=== PATIENT | male | born 1945 | race Caucasian/White ===

== ENCOUNTER 2016-12-13 13:41 | Inpatient (IN) ==
[2016-12-13] MEDS ORDERED: DUONEB (A & A) INH ONE (14:03)
[2016-12-13] MEDS ORDERED: SOLU-MEDROL IV ONE (14:04)
--- NOTE | 2016-12-13 14:08 | PROVIDER DOCUMENTATION ---
HPI-Respiratory General - General Chief Complaint: Shortness of Breath Time Seen by Provider: 12/13/16 14:04 Source: patient Allergies/Adverse Reactions: Patient Allergies Allergy/AdvReac Type Severity Reaction Status Date / Time No Known Allergies Allergy Verified 10/18/16 10:37 Home Medications: Home Medication List Medication Instructions Recorded Confirmed Last Taken Type Budesonide/Formoterol Inhaler 2 puff INH RTBID 10/18/16 10/18/16 Unknown History [Symbicort 160/4.5 Microgm Inhaler] Levothyroxine Sodium [Synthroid] 112 mcg PO DAILY 10/18/16 10/18/16 12/13/16 History Nifedipine [Procardia Xl] 90 mg PO DAILY 10/18/16 10/18/16 12/12/16 History Terazosin HCl 10 mg PO DAILY 10/18/16 10/18/16 12/13/16 History Trazodone [Desyrel] 100 mg PO QHS 10/18/16 10/18/16 12/13/16 History Albuterol Sulfate [Proventil Hfa] 6.7 gm 12/13/16 12/13/16 History Budesonide/Formoterol Fumarate 12/13/16 12/13/16 History [Symbicort 160-4.5 Mcg Inhaler] Ipratropium/Albuterol INH 4 gm INH TID 12/13/16 12/13/16 12/13/16 History [Combivent Respimat Inhaler] Tramadol [Ultram] 100 mg PO BID 12/13/16 12/13/16 12/13/16 History - History of Present Illness-Resp Nature of Presenting Problem: pt is a 71 yo M that presents to the ER with cough x 3 to 4 days in which he became short of breath at store a few days ago as well. History of COPD. denies chest pain or fever/chills Severity in ED: reports: moderate Onset/Duration: reports: gradual, 3 days ago, 4 days ago Timing: reports: still present, constant Context: denies: recent URI, out of meds Cough Quality/Degree: reports: moderate, productive cough Episode Frequency: frequent episodes Current Respiratory Medication Therapy: Initiated see nurses note Modifying Factors: worse with: exertion, coughing Associated Symptoms: reports: cough, shortness of breath, short of breath. denies: chest pain/soreness, fever/chills, flu-like symptoms, nasal congestion, nasal drainage Recently seen or treated by another doctor?: No Review of Systems - Adult - REVIEW OF SYSTEMS - ADULT Constitutional: denies: chills, fever Eyes: reports: no symptoms reported Ears, Nose, Mouth & Throat: reports: no symptoms reported Cardiovascular: denies: chest pain, palpitations Respiratory: reports: cough, dyspnea on exertion, shortness of breath. denies: wheezing Gastrointestinal: reports: no symptoms reported Genitourinary: reports: no symptoms reported Musculoskeletal: reports: no symptoms reported Integumentary: reports: no symptoms reported Neurological: reports: no symptoms reported Psychiatric: reports: no symptoms reported Endocrine: reports: no symptoms reported Hematologic/Lymphatic: reports: no symptoms reported Allergic/Immunologic: reports: no symptoms reported All Other Systems: Reviewed and Negative Past History - Adult - PAST MEDICAL HISTORY-ADULT Review of Records: reports: Old Records Reviewed, Nursing Assessment Review, Medications Reviewed Cardiovascular: reports: HTN Respiratory: reports: COPD Endocrine/Immune: reports: thyroid disorder (hypo) - PRIOR SURGERIES/PROCEDURES Surgical/Procedure History: reports: hernia repair - IMMUNIZATION STATUS Childhood Immunizations: See Nurse Assessment Flu Vaccine: See Nurse Assessment - FAMILY HISTORY Family History: reviewed, not pertinent - SOCIAL HISTORY Smoking: quit greater than 1 year, cigarettes Living Situation: family Physical Exam-General - PHYSICAL EXAM-ADULT Initial Vital Signs Reviewed: Yes - CONSTITUTIONAL General Appearance: alert, mild distress - EYES Eyes: PERRL/EOMI, pink conjunctivae - HEAD, EARS, NOSE, MOUTH & THROAT HENMT: moist mucous membranes, normal ENT inspection - NECK Neck: full range of motion, normal inspection - RESPIRATORY Respiratory: no respiratory distress, no accessory muscle use, decreased breath sounds - CARDIOVASCULAR Cardiovascular: no JVD, no murmur, tachycardia - GASTROINTESTINAL (ABDOMEN) Abdominal Exam: normal bowel sounds, non tender, soft - MUSCULOSKELETAL Extremity: normal range of motion, normal inspection, no pedal edema - SKIN Integumentary: normal color, warm/dry - NEUROLOGIC Neurologic: no motor/sensory deficits - PSYCHIATRIC Psych/Mental Status: normal mood/affect, normal thought content, normal thought process, oriented x 3 Progress - PLAN OF CARE/RESULTS Progress/Plan/Lab Results: Vital Signs - 8 hr 12/13/16 13:42 12/13/16 14:14 Temperature 96.7 F L Pulse Rate 114 H 105 H Respiratory Rate 22 18 Blood Pressure 120/84 O2 Sat by Pulse Oximetry 92 L 93 L Laboratory Results - last 24 hr 12/13/16 12/13/16 14:18 14:39 WBC 8.49 RBC 4.42 L Hgb 13.2 L Hct 38.6 L MCV 87.3 MCH 29.9 MCHC 34.2 RDW Std Deviation 13.0 Plt Count 274 MPV 10.2 Immature Gran % (Auto) 0.1 Neut % (Auto) 70.9 Lymph % (Auto) 22.1 [place] % (Auto) 6.5 Eos % (Auto) 0.2 Baso % (Auto) 0.2 Immature Gran # (Auto) 0.01 Neut # (Auto) 6.01 Lymph # (Auto) 1.88 [place] # (Auto) 0.55 Eos # (Auto) 0.02 Baso # (Auto) 0.02 Specimen Type ARTERIAL Sample Site R RADIAL pH 7.49 H pCO2 34 L pO2 60 HCO3 27.0 H Base Excess 2.9 Oxyhemoglobin 91.1 L ABG O2 Sat (Calculated) 17.4 ABG O2 Saturation 94.8 L ABG Carboxyhemoglobin 2.40 ABG Methemoglobin 1.6 H Beto Test YES A-a O2 Difference 97.0 Total Hemoglobin 13.6 Lactate 1.40 Liter Flow 2.0 Blood Gas Modality CANNULA FiO2 % 28.0 Orders Category Date Time Status Saline Loc NOW Care 12/13/16 14:03 Active CHEST-2 VIEWS [RAD] Stat Exams 12/13/16 14:03 Draft ABG [RESP] Routine Lab 12/13/16 14:18 Completed BLOOD CULTURE [BLDCUL] Stat Lab 12/13/16 15:12 Ordered CBC WITH DIFF [HEME] Stat Lab 12/13/16 14:39 Completed CK PROFILE [SP CHEM] Stat Lab 12/13/16 14:39 Received COMPREHENSIVE METABOLIC PANEL [CHEM] Stat Lab 12/13/16 14:39 Received PRO B-NATRIURETIC PEPTIDE Stat Lab 12/13/16 14:39 Received TROPONIN T Stat Lab 12/13/16 14:39 Received Albuterol 2.5MG/Ipratrop 0.5MG [Duoneb (A & A)] Med 12/13/16 14:03 Discontinued 6 ml INH NOW ONE Levofloxacin 750 mg/D5w [Levaquin 750 mg/D5w] Med 12/13/16 15:12 Active 750 mg in 150 ml IV NOW Methylprednisolone Sod Succ [Solu-Medrol] Med 12/13/16 14:04 Discontinued 125 mg IV NOW ONE Aerosol Treatments Routine Oth 12/13/16 14:04 Completed Aerosol Treatments Stat Oth 12/13/16 14:04 Completed EKG [EKG] Stat Ther 12/13/16 14:11 Draft Result Diagrams: 12/13/16 14:39 - EKG 1 Time of EKG reading by physician:: 14:12 EKG Read and Signed by:: Leroy Islas EKG Interpretation (*Must complete 3 of following elements*): Abnormal Rate: 105 Rhythm: Sinus Tachycardia [place]: right QRS: normal TN Interval: normal ST Wave: normal - XRAY 1 XRAY Study: Chest Impression: Abnormal XRAY Interpretation: B alveolor consolidation R>L juan for pneumonia, emphysema - CONSULTS/PCP/HOSPITALIST Notification #1 *Consult/PCP/Hospitalist*: Time Discussed: 15:15 Consult Disposition: Admit Departure - Departure Time of Disposition Decision: 15:18 DIAGNOSIS: COPD exacerbation Bilateral pneumonia Qualifiers: Pneumonia type: due to unspecified organism Lung location: unspecified part of lung Qualified Code(s): J18.9 - Pneumonia, unspecified organism Disposition: ADMITTED INPATIENT 09 Certified Medical Emergency: Emergent Condition: Stable Referrals and Follow-Ups: None,PCP [Primary Care Provider] -
--- NOTE | 2016-12-13 14:24 | EKG Report ---
Test Performed on : 12/13/2016 2:12:22 PM Test Reason : pain Blood Pressure : / mmHG Vent. Rate : 105 BPM Atrial Rate : 105 BPM P-R Int : 160 ms QRS Dur : 078 ms QT Int : 340 ms P-R-T Axes : 076 093 075 degrees QTc Int : 449 ms Sinus tachycardia. Rightward axis Possible Anterior infarct , age undetermined Abnormal ECG No previous ECGs available Unconfirmed Result
[2016-12-13 14:34] LABS: BE 2.9 mmoll (-3.0-3.0); BLOOD TYPE ARTERIAL; DRAW SITE R RADIAL; METHB 1.6 % (0.0-1.5); O2(CT) 17.4 mL/dL (15.0-23.0); PCO2(98.6) 34 mmHg (35-45); PO2(98.6) 60 mmHg (60-100); SAMPLE BLOOD; SAO2 94.8 % (95.0-100.0); THB 13.6 g/dL (11.5-17.4); pH(98.6) 7.49 (7.35-7.45)
[2016-12-13 14:40] LABS: ALLEN TEST YES; MODALITY CANNULA
[2016-12-13 14:49] LABS: MANUAL DIFF NEEDED? NO
[2016-12-13 14:58] LABS: BASO% 0.2 % (0.0-0.8); EOS# 0.02 X1000 (0.0-0.7); EOS% 0.2 % (0.0-10.0); HEMATOCRIT 38.6 % (42.0-52.0); HEMOGLOBIN 13.2 g/dL (14.0-18.0); IMM GRAN# 0.01 X1000 (0.0-0.04); IMM GRAN% 0.1 % (0.0-0.5); LYMPH# 1.88 X1000 (1.2-3.4); LYMPH% 22.1 % (20.5-51.1); MCH 29.9 PG (27-31); MCHC 34.2 g/dL (33-37); MCV 87.3 FL (81-99); MONO# 0.55 X1000 (0.11-0.59); MONO% 6.5 % (1.7-9.3); MPV 10.2 FL (7.4-10.4); NEUT% 70.9 % (42.2-75.2); PLT 274 X1000 (130-400); RBC 4.42 XMIL (4.7-6.1)
--- NOTE | 2016-12-13 15:06 | Diag Imaging Result Document ---
PROCEDURE NAME: CHEST-2 VIEWS - 12/13/2016 CHEST, 2 VIEWS: INDICATION: Cough. FINDINGS: There is pulmonary emphysema. There is a large area of alveolar consolidation, right lower lobe but also right upper and right middle lobe. There is a right pleural effusion. There is a smaller area of airspace consolidation in left lower lobe. The heart size is within normal limits. IMPRESSION: Bilateral infiltrates, right greater than left, suspicious for pneumonia. Emphysema.
[2016-12-13] MEDS ORDERED: LEVAQUIN 750 MG/D5W 750 MG/150 ML IVPB IV ONE (15:12)
[2016-12-13] MEDS ORDERED: ZITHROMAX PO ONE (15:20)
[2016-12-13 15:27] LABS: AGAP 17; ALBUMIN 4.2 g/dL (3.5-5.0); ALKALINE PHOSPHATASE 109 U/L (32-122); BUN 19 mg/dL (8-22); CALCIUM 9.3 mg/dL (8.8-10.2); CHLORIDE 98 mmol/L (98-107); CK PROFILE 100 U/L (24-204); COSMO 279; GOT 20 U/L (10-34); GPT 11 U/L (10-44); POTASSIUM 3.2 mmol/L (3.5-5.1); SODIUM 137 mmol/L (136-145); TCO2 22 mmol/L (25-35); TOTAL PROTEIN 6.9 g/dL (6.3-8.3)
[2016-12-13] MEDS ORDERED: DUONEB (A & A) INH PRN (17:16)
[2016-12-13] MEDS ORDERED: ZOFRAN IV PRN (17:16)
[2016-12-13] MEDS ORDERED: TYLENOL PO PRN (17:16)
--- NOTE | 2016-12-13 17:37 | HISTORY AND PHYSICAL ---
PRIMARY CARE PHYSICIAN: At the [facility] CHIEF COMPLAINT: Shortness of breath and cough for 3 days. HISTORY OF PRESENT ILLNESS: This is a 71-year-old male with a history of COPD, hypertension, and hypothyroid. He presented to the emergency room complaining of 3 days of increasing cough and shortness of breath. This has progressed. It started out as dyspnea on exertion, it has progressed to shortness of breath at rest. He denies any chest pain, palpitations, fever or chills. He was found to have bilateral pneumonia, having right upper and lower lobe pneumonia as well as left lower, with a white count of 8.9, and he is afebrile. He was given DuoNeb treatment with Zithromax and Levaquin as well as Solu-Medrol. He is being admitted for further evaluation and treatment. PAST MEDICAL HISTORY: COPD, hypertension, hypothyroid. PAST SURGICAL HISTORY: Hernia repair. SOCIAL HISTORY: He denies alcohol, tobacco, or illicit drug use. He does state that he stopped smoking cigarettes about a year ago. ALLERGIES: No known drug allergies. HOME MEDICATIONS: A list will be obtained. REVIEW OF SYSTEMS: A 14 point review of systems is discussed with patient with pertinent positives stated in HPI. He denied chest pain, palpitations, syncope, dizziness, PND, orthopnea, hemoptysis, nausea, vomiting, diarrhea, constipation, black or bloody vomitus, black or bloody stools, hematuria, dysuria, frequency, or urgency. PHYSICAL EXAMINATION: GENERAL: This is a 71-year-old male, who is sitting up in the bed, in no distress. VITAL SIGNS: Blood pressure is 131/86, with a heart rate of 101, respirations are 16, temperature is 96.9 degrees oral with oxygen saturations of 92%-95% on 2 L nasal cannula. HEENT: Head is normocephalic, atraumatic. Pupils equal, round, react to light. EOMs are intact. Sclerae anicteric. Mucous membranes are dry. NECK: Supple with trachea midline. CARDIOVASCULAR: Regular rate and rhythm. S1, S2 appreciated. PULMONARY: Breath sounds have scattered wheezes, decreased in the bases with right greater than left. No increased work of breathing noted. GASTROINTESTINAL: Abdomen is soft, nontender, nondistended. Bowel sounds in all 4 quadrants. BACK: No CVAT. No spine tenderness. MUSCULOSKELETAL: Good range of motion of joints. NEUROLOGIC: He is alert and oriented x3. EXTREMITIES: No clubbing, cyanosis. He does have 1+ pretibial and pedal edema bilateral lower extremities with pulses palpable x4. Calves nontender. SKIN: Warm and dry. DIAGNOSTIC DATA: WBC is 8.4, with hemoglobin 13.2, hematocrit 38.6, and platelets of 274,000. Sodium is 137, potassium 3.2, BUN 19, creatinine 0.8, with a glucose of 143. Troponin is less than 0.010. Arterial blood gases, pH of 7.49, with pCO2 34, PO2 60, and bicarbonate of 27, this is on 2 L nasal cannula. Chest x-ray reveals right upper and lower lobe pneumonia with left lower lobe. ASSESSMENT AND PLAN: 1. Multilobar pneumonia. Blood cultures are obtained in the emergency room. He was given Levaquin and Zithromax. We will continue this. 2. Chronic obstructive pulmonary disease. We will continue with supplemental oxygen, breathing treatments q.4 hours and q.2 hours p.r.n. Steroids to taper. We will identify his home medications and continue as appropriate. 3. Hypothyroid. We will check a TSH. 4. For deep venous thrombosis prophylaxis we will use Lovenox. 5. For gastrointestinal prophylaxis we will use Prilosec. 6. Further treatments pending hospital course. Dictated by JIN Gomez for Agapito Urrutia MD cc: JIN Gomez MD
[2016-12-13] MEDS: DUONEB (A & A) INH SCH ×2 (20:00→22:48)
[2016-12-13] MEDS: ULTRAM PO SCH (21:22)
[2016-12-13] MEDS: DESYREL PO SCH (21:23)
[2016-12-13] MEDS: SOLU-MEDROL IV SCH (21:24)
[2016-12-14] MEDS: DUONEB (A & A) INH SCH ×6 (03:11→22:53)
[2016-12-14 06:37] LABS: HEMATOCRIT 35.7 % (42.0-52.0); HEMOGLOBIN 11.9 g/dL (14.0-18.0); MCH 29.5 PG (27-31); MCHC 33.3 g/dL (33-37); MCV 88.6 FL (81-99); MPV 10.7 FL (7.4-10.4); RBC 4.03 XMIL (4.7-6.1)
[2016-12-14] MEDS: SYNTHROID PO SCH (06:37)
[2016-12-14] MEDS: PRILOSEC PO SCH (06:37)
[2016-12-14] MEDS: SOLU-MEDROL IV SCH ×2 (06:38→17:44)
[2016-12-14 06:57] LABS: AGAP 10; ALBUMIN 3.8 g/dL (3.5-5.0); ALKALINE PHOSPHATASE 90 U/L (32-122); BUN 17 mg/dL (8-22); CALCIUM 9.2 mg/dL (8.8-10.2); CHLORIDE 103 mmol/L (98-107); COSMO 278; GOT 17 U/L (10-34); GPT 9 U/L (10-44); SODIUM 137 mmol/L (136-145); TCO2 24 mmol/L (25-35); TOTAL PROTEIN 6.1 g/dL (6.3-8.3)
[2016-12-14] MEDS ORDERED: COMBIVENT RESPIMAT INHALER INH SCH (07:00)
[2016-12-14] MEDS: LOVENOX SUBQ SCH (08:38)
[2016-12-14] MEDS: HYTRIN PO SCH (08:38)
[2016-12-14] MEDS: ADALAT CC PO SCH (08:38)
[2016-12-14] MEDS: ULTRAM PO SCH ×3 (08:39→21:43)
[2016-12-14] MEDS: ZITHROMAX PO SCH (08:53)
--- NOTE | 2016-12-14 12:58 | PROGRESS NOTE ---
DATE: 12/14/2016 SUBJECTIVE: The patient notes that he is feeling a lot better this morning. He is having less cough and congestion, less shortness of breath, less dyspnea on exertion. Denies any chest pain, palpitation, denies any fevers or chills. OBJECTIVE: Vital signs: Reviewed. Temp 98, pulse 73, respiratory 20, BP 162/83 to 157/84, satting 95% on 2 L. General: The patient is well developed, well nourished. He is currently in mild respiratory distress. He is awake and alert. Neck: Supple. CV: Regular rate. Chest: Relatively clear. Abdomen: Soft, nondistended. Extremities: He moves all extremities. Neurological: No changes. ASSESSMENT: 1. Chronic obstructive pulmonary disease with mild exacerbation, improving. 2. Multilobar pneumonia. Continue Levaquin, improving. 3. Hypothyroidism. 4. Hypokalemia, resolved. 5. Hyperglycemia secondary to steroids, stable. PLAN: Will decrease his Levaquin to p.o. Will decrease his Solu-Medrol to 40 q.12 h. Continue other orders. Will recheck a chest x-ray in the a.m. Hopefully home in one to two days. cc: Agapito Urrutia MD
[2016-12-14] MEDS ORDERED: LEVAQUIN 750 MG/D5W 750 MG/150 ML IVPB IV SCH (16:00)
[2016-12-14] MEDS ORDERED: NS 500 ML ONE (16:17)
[2016-12-14] MEDS: DESYREL PO SCH ×2 (19:56→21:43)
[2016-12-15] MEDS: DUONEB (A & A) INH SCH ×3 (03:35→10:52)
[2016-12-15] MEDS: SOLU-MEDROL IV SCH (05:06)
[2016-12-15 06:30] LABS: HEMATOCRIT 35.9 % (42.0-52.0); HEMOGLOBIN 11.8 g/dL (14.0-18.0); MCH 29.6 PG (27-31); MCHC 32.9 g/dL (33-37); MPV 10.8 FL (7.4-10.4); RBC 3.99 XMIL (4.7-6.1)
[2016-12-15] MEDS: SYNTHROID PO SCH (06:38)
[2016-12-15] MEDS: PRILOSEC PO SCH (06:38)
[2016-12-15 06:51] LABS: AGAP 10; ALBUMIN 3.5 g/dL (3.5-5.0); ALKALINE PHOSPHATASE 90 U/L (32-122); BUN 23 mg/dL (8-22); CHLORIDE 105 mmol/L (98-107); COSMO 283; GOT 20 U/L (10-34); GPT 11 U/L (10-44); POTASSIUM 3.8 mmol/L (3.5-5.1); SODIUM 139 mmol/L (136-145); TCO2 25 mmol/L (25-35); TOTAL BILIRUBIN < 0.15 mg/dL (0.20-1.00); TOTAL PROTEIN 5.9 g/dL (6.3-8.3)
[2016-12-15] MEDS: HYTRIN PO SCH (08:25)
[2016-12-15] MEDS: ADALAT CC PO SCH (08:26)
[2016-12-15] MEDS: ULTRAM PO SCH (08:26)
[2016-12-15] MEDS: LOVENOX SUBQ SCH (08:26)
[2016-12-15] MEDS: ZITHROMAX PO SCH (10:13)
--- NOTE | 2016-12-15 10:15 | Diag Imaging Result Document ---
PROCEDURE NAME: CHEST-2 VIEWS - 12/15/2016 CHEST X-RAY 2 VIEWS, 12/15/2016: COMPARISON: 12/13/2016. FINDINGS: There is decrease in density of the ill-defined infiltrate at the right lung base worse in the right lower lobe. No new infiltrates. Stable severe COPD. Heart size is normal. IMPRESSION: Improvement in the right lower lobe infiltrate/pneumonia.
[2016-12-15 12:12] VITALS: BP 141/71
--- NOTE | 2016-12-15 21:34 | DISCHARGE SUMMARY ---
ADMISSION DATE: 12/13/2016 DISCHARGE DATE: 12/15/2016 DISCHARGE DIAGNOSES: 1. Right lower lobe pneumonia improved. 2. Chronic obstructive pulmonary disease with exacerbation, stable. 3. Hypothyroidism. 4. Hypertension, stable. CONSULTATIONS: None. PROCEDURE: None. HOSPITAL COURSE: Patient is a 71-year-old male was admitted as on the HPI. Treated in usual fashion. Placed on breathing treatments, azithromycin and Levaquin, both have been changed to p.o. Patient is doing very well. His methylprednisolone has been slowly decreased over the last several days. On discharge he is awake, alert. He is in no distress. DISPOSITION: The patient will be discharged home. He will take a Medrol Dosepak. Continue Levaquin 500 and azithromycin 250 for the next 5 days each. He will continue breathing treatments. Will follow up outpatient with his primary care physician of choice. TIME SPENT: 30 minutes spent in discharge planning and instructions. cc: Agapito Urrutia MD
== END 2016-12-15 14:04 | disposition home or self-care (01) ==
LOC: P.ED 13:41 → P.MEDSURG 16:23
PROVIDERS: ATTEND Family Medicine

== ENCOUNTER 2016-12-19 19:33 | Inpatient (IN) ==
[2016-12-19 21:18] LABS: MANUAL DIFF NEEDED? NO
[2016-12-19 21:42] LABS: INR 1.06 (0.86-1.15); PROTIME 14.1 Seconds (12.1-15.5); PTT PL 27.4 Seconds (22.6-43.9)
--- NOTE | 2016-12-19 21:55 | EKG Report ---
Test Performed on : 12/19/2016 8:52:29 PM Test Reason : CHEST PAIN Blood Pressure : / mmHG Vent. Rate : 103 BPM Atrial Rate : 103 BPM P-R Int : 174 ms QRS Dur : 078 ms QT Int : 350 ms P-R-T Axes : 072 090 074 degrees QTc Int : 458 ms Sinus tachycardia. Rightward axis Borderline ECG When compared with ECG of 13-DEC-2016 14:12, No significant change was found Unconfirmed Result
[2016-12-19 22:02] LABS: BASO% 0.1 % (0.0-0.8); EOS# 0.02 X1000 (0.0-0.7); EOS% 0.3 % (0.0-10.0); HEMATOCRIT 38.3 % (42.0-52.0); HEMOGLOBIN 12.6 g/dL (14.0-18.0); IMM GRAN# 0.03 X1000 (0.0-0.04); IMM GRAN% 0.4 % (0.0-0.5); LYMPH# 1.04 X1000 (1.2-3.4); LYMPH% 14.5 % (20.5-51.1); MCH 29.1 PG (27-31); MCHC 32.9 g/dL (33-37); MCV 88.5 FL (81-99); MONO# 0.67 X1000 (0.11-0.59); MONO% 9.3 % (1.7-9.3); MPV 10.4 FL (7.4-10.4); NEUT% 75.4 % (42.2-75.2); PLT 197 X1000 (130-400); RBC 4.33 XMIL (4.7-6.1)
[2016-12-19 22:08] LABS: BE 2.7 mmoll (-3.0-3.0); BLOOD TYPE ARTERIAL; DRAW SITE L RADIAL; METHB 1.4 % (0.0-1.5); O2(CT) 17.9 mL/dL (15.0-23.0); PCO2(98.6) 36 mmHg (35-45); PO2(98.6) 63 mmHg (60-100); SAMPLE BLOOD; SAO2 95.8 % (95.0-100.0); THB 13.8 g/dL (11.5-17.4); pH(98.6) 7.47 (7.35-7.45)
[2016-12-19 22:12] LABS: ALLEN TEST YES; MODALITY ROOM AIR
[2016-12-19] MEDS ORDERED: DUONEB (A & A) INH ONE (22:17)
[2016-12-19 22:18] LABS: AGAP 14; ALKALINE PHOSPHATASE 94 U/L (32-122); BUN 22 mg/dL (8-22); CALCIUM 9.1 mg/dL (8.8-10.2); CHLORIDE 99 mmol/L (98-107); CK PROFILE 94 U/L (24-204); COSMO 278; GOT 28 U/L (10-34); GPT 25 U/L (10-44); MAGNESIUM 2.3 mg/dL (1.5-2.7); POTASSIUM 3.2 mmol/L (3.5-5.1); SODIUM 137 mmol/L (136-145); TCO2 24 mmol/L (25-35); TOTAL PROTEIN 6.4 g/dL (6.3-8.3)
[2016-12-20] MEDS ORDERED: NS 1,000 ML IV ONE (01:25)
[2016-12-20] MEDS ORDERED: ROCEPHIN 1 GM/NS 1 GM/50 ML IVPB IV SCH (01:30)
--- NOTE | 2016-12-20 02:41 | Diag Imaging Result Document ---
PROCEDURE NAME: ANGIOGRAM/PULMONARY ARTERIES - 12/19/2016 STUDY: CT chest with intravenous contrast. Normal opacification of the pulmonary arteries and their major branches. No filling defects identified. Trace right fluid. Very dense infiltrates throughout the right lower lobe with smaller patchy infiltrates in the other lobes, most pronounced posteriorly in the left lower lobe. There are prominent emphysematous changes. The heart is not enlarged. No enlarged mediastinal or hilar lymph nodes. IMPRESSION: 1. No pulmonary emboli. 2. Pneumonia most pronounced in the right lower lobe. 3. Emphysema. A preliminary report was given at 1:04 a.m.
[2016-12-20] MEDS ORDERED: DUONEB (A & A) INH PRN (04:02)
[2016-12-20] MEDS ORDERED: HYTRIN PO ONE (05:30)
--- NOTE | 2016-12-20 06:44 | Diag Imaging Result Document ---
PROCEDURE NAME: CHEST-2 VIEWS - 12/19/2016 FRONTAL AND LATERAL CHEST, TWO VIEWS: COMPARISON: 12/15/2016. FINDINGS: Interval worsening of dense infiltrates in the right lower lobe. The lungs are hyperexpanded. The pulmonary vessels are small. The heart is not enlarged. There is a small right effusion. IMPRESSION: 1. Interval worsening in the right lower lobe pneumonia. 2. Emphysema.
[2016-12-20] MEDS ORDERED: APRESOLINE IV PRN (07:18)
[2016-12-20] MEDS ORDERED: ZITHROMAX 500 MG/NS 500 MG/250 ML IVPB IV SCH (07:30)
[2016-12-20] MEDS ORDERED: ULTRAM PO PRN (08:21)
[2016-12-20] MEDS ORDERED: KLOR-CON PO ONE (08:23)
[2016-12-20] MEDS ORDERED: VANCOMYCIN IV PER PHARMACY MISC SCH (08:45)
[2016-12-20] MEDS: DUONEB (A & A) INH SCH ×5 (08:50→22:58)
[2016-12-20] MEDS: SYMBICORT 160/4.5 MICROGM INHALER INH SCH ×2 (09:01→19:40)
[2016-12-20] MEDS ORDERED: DULCOLAX PR ONE (09:15)
[2016-12-20] MEDS: LOVENOX SUBQ SCH (09:56)
[2016-12-20] MEDS: SOLU-MEDROL IV SCH ×2 (09:56→16:46)
[2016-12-20] MEDS: ZOSYN 3.375 GM/NS 3.375 GM/50 ML IVPB IV SCH ×3 (09:56→20:33)
[2016-12-20] MEDS ORDERED: VANCOMYCIN 1,900 MG in NS 500 ML IV ONE (10:00)
[2016-12-20] MEDS: XANAX PO SCH ×2 (10:12→20:34)
--- NOTE | 2016-12-20 10:37 | HISTORY AND PHYSICAL ---
CHIEF COMPLAINT: Increased shortness of breath since being discharged from the hospital on 12/15/2016. HISTORY OF PRESENTING ILLNESS: This is a 71-year-old male, who was admitted to [facility] on 12/13/2016 through 12/15/2016 for a right lower lobe pneumonia. She was discharged home on p.o. Levaquin and Zithromax, states he took his medications as prescribed, but that he has continued since he went home on the to have worsening shortness of breath that progressively worsened every day. So, he came to the emergency room last night. A chest x-ray showed interval worsening in the right lower lobe pneumonia. He had a mild elevation in his D-dimer at 0.57. Pulmonary arteriogram was obtained that showed no pulmonary emboli. The pneumonia was most pronounced in the right lower lobe and emphysema. So, he is admitted for further evaluation and treatment. PAST MEDICAL HISTORY: Recent right lower lobe pneumonia, COPD, hypertension, hypothyroidism. PAST SURGICAL HISTORY: A hernia repair. FAMILY HISTORY: Noncontributory. SOCIAL HISTORY: He denies any tobacco, alcohol, or illicit drug use. Does state that he was a former smoker, but has quit greater than a year ago. ALLERGIES: He has no known drug allergies. HOME MEDICATIONS: We will hold the followin. Proventil inhalation q. 4 hours p.r.n. 2. Zithromax 250 mg p.o. daily. 3. Combivent inhalation 4 times daily. 4. Levaquin 500 mg p.o. daily. 5. Medrol Dosepak as directed. We will continue his: 1. Symbicort 160 mg/4.5 two puffs inhalation b.i.d. 2. Synthroid 112 mcg p.o. daily. 3. Nifedipine 60 mg p.o. at bedtime. 4. Terazosin 10 mg p.o. at bedtime. 5. Ultram 100 mg p.o. q. 6 hours. 6. Desyrel 50 mg p.o. at bedtime. LABORATORY DATA/IMAGING DATA: Showed a white blood cell count of 7.19, hemoglobin 12.6, hematocrit 38.3, platelets 197. PT and INR of 14.1 and 1.06 with a D-dimer of 0.57. His ABG showed a pH of 7.47, pCO2 of 36, PO2 63, bicarbonate of 26.9. Sodium 137, potassium 3.2, chloride 99, CO2 24, BUN of 22, creatinine 0.9, glucose 112, magnesium of 2.3, creatine kinase of 94. Troponin less than 0.010. ProBNP of 63. Chest x-ray showed interval worsening in the right lower lobe pneumonia and emphysema. Pulmonary arteriogram showed no pulmonary emboli. Pneumonia most pronounced in the right lower lobe and emphysema. EKG showed sinus tachycardia at 103. REVIEW OF SYSTEMS: He denied any fever, chills, blurred vision, dizziness, chest pain. He had a mild cough nonproductive, shortness of breath. Denied any nausea or vomiting. States he has had some abdominal pain. No diarrhea or burning or hurting with urination. PHYSICAL EXAMINATION: VITAL SIGNS: On arrival, he had a temperature of 97.8 degrees, pulse 118, respirations 20, blood pressure 133/97, satting 95% on room air. GENERAL: This is a 71-year-old male, who is sitting up in the bed resting quietly. HEENT: Normocephalic and atraumatic. Pupils are equal, round, reactive to light. The extraocular movements are intact. The oropharynx and nares are clear. NECK: Supple. LUNGS: Clear to auscultation bilaterally with decreased breath sounds throughout entire posterior lung [place]. Equal lung expansion and chest wall movement are noted. HEART: With regular rate and rhythm. No murmurs, rubs, or gallops. ABDOMEN: Soft, nontender, nondistended. Bowel sounds are present x4 quadrants. EXTREMITIES: There is no clubbing, cyanosis, or edema. NEUROLOGICAL: The cranial nerves 2-12 are grossly intact. ASSESSMENT: 1. Right lower lobe pneumonia with failed outpatient treatment. 2. Hypokalemia. 3. Hypertension. 4. An acute chronic obstructive pulmonary disease exacerbation. PLAN: He was admitted to the medical unit at [facility], placed on telemetry O2 per protocol. He was given Levaquin and Zithromax IV in the ER, but that is what he was on previously and discharged home with p.o. So, we will discontinue that and place him on Zosyn 3.375 g IV q. 6 hours and vancomycin per pharmacy protocol. We will place him on DuoNebs q. 4 hours, normal saline at 80 mL an hour. Continue his home medications as previously identified. We will give him a 40 mEq potassium p.o. x1 now, Solu-Medrol 80 mg IV q. 8 hours, and Lovenox 40 mg subcutaneous q. 24 hours. We will recheck a CBC and a BMP in the a.m. Dictated by JIN Valdez for Julian Lynn MD cc: JIN Valdez MD
[2016-12-20] MEDS: APRESOLINE PO SCH ×2 (13:11→20:33)
[2016-12-20] MEDS: ADALAT CC PO SCH (20:33)
[2016-12-20] MEDS: HYTRIN PO SCH (20:33)
[2016-12-20] MEDS: DESYREL PO SCH (20:33)
[2016-12-21] MEDS: SOLU-MEDROL IV SCH ×3 (01:05→18:15)
[2016-12-21] MEDS: ZOSYN 3.375 GM/NS 3.375 GM/50 ML IVPB IV SCH ×4 (03:45→21:06)
[2016-12-21] MEDS: DUONEB (A & A) INH SCH ×6 (04:01→23:37)
[2016-12-21] MEDS: APRESOLINE PO SCH ×3 (05:27→21:08)
[2016-12-21 05:44] LABS: MANUAL DIFF NEEDED? NO
[2016-12-21 05:56] LABS: HEMATOCRIT 37.9 % (42.0-52.0); HEMOGLOBIN 12.8 g/dL (14.0-18.0); IMM GRAN# 0.01 X1000 (0.0-0.04); IMM GRAN% 0.2 % (0.0-0.5); LYMPH# 0.57 X1000 (1.2-3.4); LYMPH% 12.5 % (20.5-51.1); MCH 29.8 PG (27-31); MCHC 33.8 g/dL (33-37); MCV 88.1 FL (81-99); MONO# 0.16 X1000 (0.11-0.59); MONO% 3.5 % (1.7-9.3); MPV 10.8 FL (7.4-10.4); NEUT% 83.8 % (42.2-75.2); PLT 197 X1000 (130-400)
[2016-12-21 06:12] LABS: AGAP 12; BUN 19 mg/dL (8-22); CALCIUM 9.1 mg/dL (8.8-10.2); CHLORIDE 103 mmol/L (98-107); COSMO 280; POTASSIUM 3.6 mmol/L (3.5-5.1); SODIUM 138 mmol/L (136-145); TCO2 23 mmol/L (25-35)
[2016-12-21] MEDS: SYNTHROID PO SCH (06:34)
[2016-12-21] MEDS: SYMBICORT 160/4.5 MICROGM INHALER INH SCH ×3 (08:00→20:16)
[2016-12-21] MEDS: MIRALAX PO SCH (09:27)
[2016-12-21] MEDS: LOVENOX SUBQ SCH (09:28)
[2016-12-21] MEDS: XANAX PO SCH ×2 (09:30→21:07)
[2016-12-21] MEDS ORDERED: DULCOLAX PR ONE (09:45)
[2016-12-21] MEDS: VANCOMYCIN 1,750 MG in NS 250 ML IV SCH (10:12)
--- NOTE | 2016-12-21 12:36 | PROGRESS NOTE ---
DATE: 12/21/2016 SUBJECTIVE: This patient says that he is feeling better. He is not complaining of shortness of breath right now. This patient was anxious also yesterday and today he looks much better. OBJECTIVE: Vital Signs: Pulse 106. Respiratory rate 18, blood pressure 146/79, O2 saturation 96% on 2 L of nasal cannula. HEENT: Head normocephalic. No trauma. PERRLA. Neck: Supple. No JVD. No masses. Central trachea. Chest: Decreased breath sounds globally. Prolonged expiratory phase. Bilateral scattered expiratory wheezing. Decreased breath sounds at the bases with rhonchi at the level of the right lower lobe. Abdomen: Soft, nontender, nondistended. No hepatosplenomegaly. Cardiovascular: RRR. No murmurs. Tachycardic. Extremities: No edema. No clubbing. No cyanosis. Neurological: The patient is alert, oriented x3. No focal neurological deficits. LABORATORY: WBC 4.5, hemoglobin 12.8, hematocrit 37.9. Platelets 197,000. Sodium 138, potassium 3.6, chloride 103, bicarbonate 23, BUN 19, creatinine 0.7, glucose 136, calcium 9.1. ASSESSMENT AND PLAN: 1. Right lower lobe pneumonia with failed outpatient treatment. At this moment we started this patient on Zosyn and vancomycin. This patient was on Levaquin and Zithromax. We are going to continue the same management. This patient is getting better. 2. Hypokalemia resolved. 3. Hypertension. The blood pressure is better. Continue to monitor. 4. Chronic obstructive pulmonary disease exacerbation. Continue with the same management. 5. Anxiety. Continue with the same management. cc: Julian Lynn MD
[2016-12-21] MEDS: ADALAT CC PO SCH (21:07)
[2016-12-21] MEDS: HYTRIN PO SCH (21:07)
[2016-12-21] MEDS: DESYREL PO SCH (21:08)
[2016-12-22] MEDS: SOLU-MEDROL IV SCH ×4 (01:40→23:27)
[2016-12-22] MEDS: DUONEB (A & A) INH SCH ×5 (04:18→19:41)
[2016-12-22] MEDS: APRESOLINE PO SCH ×3 (04:28→21:11)
[2016-12-22] MEDS: ZOSYN 3.375 GM/NS 3.375 GM/50 ML IVPB IV SCH ×4 (04:28→21:11)
[2016-12-22] MEDS: SYNTHROID PO SCH (06:14)
[2016-12-22 06:40] LABS: AGAP 13; BUN 27 mg/dL (8-22); CALCIUM 8.9 mg/dL (8.8-10.2); CHLORIDE 105 mmol/L (98-107); COSMO 288; POTASSIUM 3.6 mmol/L (3.5-5.1); SODIUM 141 mmol/L (136-145); TCO2 23 mmol/L (25-35)
[2016-12-22] MEDS: SYMBICORT 160/4.5 MICROGM INHALER INH SCH ×2 (07:18→19:42)
[2016-12-22] MEDS: NS 1,000 ML IV SCH (08:06)
[2016-12-22] MEDS: MIRALAX PO SCH (08:07)
[2016-12-22] MEDS: LOVENOX SUBQ SCH (08:07)
[2016-12-22] MEDS: XANAX PO SCH ×2 (08:07→21:10)
[2016-12-22] MEDS: VANCOMYCIN 1,750 MG in NS 250 ML IV SCH (10:32)
--- NOTE | 2016-12-22 14:49 | PROGRESS NOTE ---
DATE: 12/22/2016 SUBJECTIVE: This patient states that he is feeling better. He is not complaining of shortness of breath at this moment, but he has shortness of breath with physical activity. He is still coughing and he was anxious 2 days ago, but he looks much better today. He has generalized weakness. OBJECTIVE: Vital Signs: Temperature 98.3 degrees, pulse 102, respiratory rate 18, blood pressure 124/57, O2 saturation 97% on 2 L of nasal cannula. HEENT: Head normocephalic. No trauma. PERRLA. Neck: Supple. No JVD. No masses. Central trachea. Chest: Decreased breath sounds globally. Prolonged expiratory wheezing. Decreased breath sounds at the bases with rhonchi at the level of the right lower lobe. Abdomen: Soft, nontender, nondistended. No hepatosplenomegaly. Cardiovascular: Regular rhythm and rate. No murmurs. Tachycardic. Extremities: No edema. No clubbing. No cyanosis. Neurological: The patient is alert and oriented x3. No focal neurological deficits. LABORATORY: Sodium 141, potassium 3.6, chloride 105, bicarbonate 23, BUN 27, creatinine 1.1, glucose 125. Calcium 8.9. ASSESSMENT AND PLAN: 1. Right lower lobe pneumonia with failed outpatient treatment. This patient looks better and he feels better as well. We will continue with the same management for now. I will ask phone an x-ray in the morning and I will continue monitoring the lab work. 2. Hypokalemia. Resolved. 3. Hypertension. The blood pressure is better controlled. Continue to monitor. 4. Chronic obstructive pulmonary disease exacerbation. Continue with the same management. I will decrease the dose of methyl prednisolone from 80 IV q.8 hours to 40 IV q.8 hours. 5. Anxiety. Continue with the same management. He looks better. cc: Julian Lynn MD
[2016-12-22] MEDS: DESYREL PO SCH (21:10)
[2016-12-22] MEDS: HYTRIN PO SCH (21:10)
[2016-12-22] MEDS: ADALAT CC PO SCH (21:10)
[2016-12-23] MEDS: DUONEB (A & A) INH SCH ×6 (00:28→19:40)
[2016-12-23] MEDS: NS 1,000 ML IV SCH ×4 (02:20→20:05)
[2016-12-23] MEDS: ZOSYN 3.375 GM/NS 3.375 GM/50 ML IVPB IV SCH ×4 (03:25→20:05)
[2016-12-23] MEDS: APRESOLINE PO SCH ×3 (04:43→20:05)
[2016-12-23] MEDS: SYNTHROID PO SCH (06:35)
[2016-12-23 06:40] LABS: AGAP 10; BUN 28 mg/dL (8-22); CALCIUM 8.6 mg/dL (8.8-10.2); CHLORIDE 107 mmol/L (98-107); COSMO 284; POTASSIUM 3.4 mmol/L (3.5-5.1); SODIUM 139 mmol/L (136-145); TCO2 22 mmol/L (25-35)
[2016-12-23 07:08] LABS: HEMATOCRIT 35.2 % (42.0-52.0); HEMOGLOBIN 11.8 g/dL (14.0-18.0); IMM GRAN# 0.03 X1000 (0.0-0.04); IMM GRAN% 0.4 % (0.0-0.5); LYMPH# 0.53 X1000 (1.2-3.4); LYMPH% 6.7 % (20.5-51.1); MANUAL DIFF NEEDED? YES; MCH 29.9 PG (27-31); MCHC 33.5 g/dL (33-37); MCV 89.3 FL (81-99); MONO% 6.3 % (1.7-9.3); MPV 11.1 FL (7.4-10.4); NEUT% 86.6 % (42.2-75.2); PLT 172 X1000 (130-400); RBC 3.94 XMIL (4.7-6.1)
[2016-12-23 07:30] LABS: LYMPHS 6 % (21-51); MONO 6 % (1-9)
[2016-12-23] MEDS: LOVENOX SUBQ SCH (08:30)
[2016-12-23] MEDS: MIRALAX PO SCH (08:30)
[2016-12-23] MEDS: XANAX PO SCH ×2 (08:31→20:05)
[2016-12-23] MEDS: SOLU-MEDROL IV SCH ×2 (08:31→15:18)
[2016-12-23] MEDS: SYMBICORT 160/4.5 MICROGM INHALER INH SCH ×2 (09:01→19:40)
--- NOTE | 2016-12-23 09:11 | Diag Imaging Result Document ---
PROCEDURE NAME: CHEST-PORTABLE - 12/23/2016 PORTABLE CHEST X-RAY, 12/23/2016: COMPARISON: 12/19/2016. FINDINGS: There is improvement in the right basilar pneumonia. No new infiltrates. Heart size remains normal. IMPRESSION: Improvement in the right basilar infiltrate/pneumonia.
--- NOTE | 2016-12-23 09:53 | PROGRESS NOTE ---
DATE: 12/23/2016 SUBJECTIVE: The patient states he is feeling much better. He denies any shortness of breath at present. He does have some dyspnea on exertion, but he states this is also improving. He continues with a cough, but he states it is better. He denies any chest pain, PND or orthopnea. OBJECTIVE: Vital Signs: Blood pressure is 124/81 with a heart rate of 95, respirations are 18, temperature is 98 oral with oxygen saturations 95-98% on 2 L nasal cannula. Cardiovascular: Regular rate and rhythm. S1 and S2 appreciated. Pulmonary: Breath sounds with prolonged expiration. Wheezing scattered throughout. He does have some rhonchi at the right lower lobe. Gastrointestinal: Abdomen is soft, nontender, nondistended with bowel sounds in all 4 quadrants. Extremities: No clubbing, cyanosis, or edema. Calves are nontender. Pulses are palpable x4. Neurologic: He is alert and oriented x3. LABS: WBC is 7.92 with hemoglobin 11.8, hematocrit 35.2, platelets of 172. Sodium is 139, potassium 3.4, BUN is 28, creatinine 1.1 with a glucose of 124. ASSESSMENT AND PLAN: 1. Right lower lobe pneumonia with failed outpatient treatment. The patient states that he is doing much better. We will continue with the same management. Chest x-ray this morning revealed some improvement of the right basilar pneumonia per Radiology read. 2. Hypokalemia. We will continue to monitor electrolytes and replete as appropriate. 3. Hypertension. Blood pressure is better controlled. We will monitor. 4. Chronic obstructive pulmonary disease exacerbation. We will continue to decrease his steroids. We will continue with pulmonary toilet. 5. Anxiety. We will continue with same management. 6. Deep vein thrombosis prophylaxis. We will continue Lovenox, further treatment. Dictated by JIN Gomez for Dakota Nixon MD cc: JIN Gomez Addendum: I personally evaluated and examined the patient in conjunction to the PERFORATOR and agreed with her assessments and plans. Decrease air movement bilaterally. MTDD
[2016-12-23] MEDS: VANCOMYCIN 1,750 MG in NS 250 ML IV SCH (11:02)
[2016-12-23] MEDS: HYTRIN PO SCH (20:04)
[2016-12-23] MEDS: DESYREL PO SCH (20:04)
[2016-12-23] MEDS: ADALAT CC PO SCH (20:05)
[2016-12-24] MEDS: DUONEB (A & A) INH SCH ×7 (01:38→23:04)
[2016-12-24] MEDS: ZOSYN 3.375 GM/NS 3.375 GM/50 ML IVPB IV SCH ×4 (03:50→20:16)
[2016-12-24 05:54] LABS: HEMOGLOBIN 11.4 g/dL (14.0-18.0); MCH 29.5 PG (27-31); MCHC 32.6 g/dL (33-37); MCV 90.7 FL (81-99); MPV 10.6 FL (7.4-10.4); RBC 3.86 XMIL (4.7-6.1)
[2016-12-24] MEDS: SOLU-MEDROL IV SCH ×2 (06:04→18:19)
[2016-12-24] MEDS: APRESOLINE PO SCH ×3 (06:04→20:16)
[2016-12-24] MEDS: SYNTHROID PO SCH (06:04)
[2016-12-24 06:13] LABS: AGAP 11; ALBUMIN 3.3 g/dL (3.5-5.0); ALKALINE PHOSPHATASE 79 U/L (32-122); BUN 27 mg/dL (8-22); CALCIUM 8.5 mg/dL (8.8-10.2); CHLORIDE 106 mmol/L (98-107); COSMO 284; GOT 35 U/L (10-34); GPT 64 U/L (10-44); POTASSIUM 3.3 mmol/L (3.5-5.1); SODIUM 139 mmol/L (136-145); TCO2 23 mmol/L (25-35); TOTAL PROTEIN 4.8 g/dL (6.3-8.3)
[2016-12-24] MEDS: SYMBICORT 160/4.5 MICROGM INHALER INH SCH ×2 (07:41→23:04)
[2016-12-24] MEDS: XANAX PO SCH ×2 (08:00→20:16)
[2016-12-24] MEDS: MIRALAX PO SCH (08:00)
[2016-12-24] MEDS: LOVENOX SUBQ SCH (08:00)
[2016-12-24] MEDS: NS 1,000 ML IV SCH (09:33)
[2016-12-24] MEDS: POTASSIUM CHLORIDE 20 MEQ/SWI 20 MEQ/100 ML IVPB IV SCH ×2 (09:34→22:39)
[2016-12-24] MEDS ORDERED: VANCOMYCIN 1,850 MG in NS 500 ML IV SCH (10:00)
--- NOTE | 2016-12-24 12:18 | PROGRESS NOTE ---
DATE: 12/24/2016 SUBJECTIVE: The patient is feeling much better today. He stated that he has had a good night's sleep. No fever. No chills. No acute event reported by the overnight staff. OBJECTIVE: Vital signs: Blood pressure 124/68, pulse of 82, respiration 18, temperature 97.7 degrees, and saturation of 94% on 2L. General Appearance: A thin white male in no acute distress, sitting up by the side of the bed, talking comfortably. HEENT: Anicteric. Clear conjunctivae. Neck: Supple. No JVD. No bruit. Cardiovascular: Normal S1 and S2. Normal rate and rhythm. No murmur, rubs, or gallops. Pulmonary: Decreased air movement bilaterally, but no crackle or wheezes. Abdomen: Soft, nontender, nondistended. Normoactive bowel sounds. Musculoskeletal: No clubbing, cyanosis, or edema. LABORATORY: White count of 8.66, hemoglobin 11.4, hematocrit of 35.0, platelets of 155,000. Chemistry: Sodium 139, potassium 3.3, chloride 106, bicarbonate 23, BUN 27, creatinine 1.1, glucose of 124. ASSESSMENT AND PLAN: This is a 71-year-old admitted to the hospital for shortness of breath. 1. Healthcare-associated pneumonia. The patient is on Zosyn and Levaquin. Will increase Levaquin to 750 today. He has been on 500. No cultures are available. The patient seems to be improving. We will keep him on vancomycin, as well. We probably will deescalate antibiotics after 5 days, which is tomorrow. He has failed outpatient treatment for a community-acquired pneumonia. 2. Hypertension. We will continue Adalat. 3. Chronic obstructive pulmonary disease exacerbation, probably secondary to pneumonia. We will continue A and A nebulizers and Solu-Medrol. 4. Benign prostatic hypertrophy. Continue Hytrin. 5. Chronic pain. Continue Ultram p.r.n. 6. Insomnia. Will continue on trazodone and Xanax p.r.n. 7. Hypokalemia. We will continue to replace the potassium. 8. Deep vein thrombosis prophylaxis. The patient on Lovenox. 9. Code status: The patient is full code.
[2016-12-24] MEDS: ADALAT CC PO SCH (20:15)
[2016-12-24] MEDS: HYTRIN PO SCH (20:15)
[2016-12-24] MEDS: DESYREL PO SCH (20:16)
[2016-12-25] MEDS: ZOSYN 3.375 GM/NS 3.375 GM/50 ML IVPB IV SCH ×4 (03:00→22:09)
[2016-12-25] MEDS: DUONEB (A & A) INH SCH ×6 (03:25→23:09)
[2016-12-25] MEDS: NS 1,000 ML IV SCH (05:15)
[2016-12-25] MEDS: SOLU-MEDROL IV SCH (06:05)
[2016-12-25] MEDS: APRESOLINE PO SCH ×3 (06:05→22:10)
[2016-12-25] MEDS: SYNTHROID PO SCH (06:05)
[2016-12-25] MEDS: SYMBICORT 160/4.5 MICROGM INHALER INH SCH ×2 (07:35→19:52)
[2016-12-25] MEDS: XANAX PO SCH ×2 (09:01→22:10)
[2016-12-25] MEDS: LOVENOX SUBQ SCH (09:02)
[2016-12-25] MEDS: MIRALAX PO SCH (09:02)
--- NOTE | 2016-12-25 11:06 | PROGRESS NOTE ---
DATE: 12/25/2016 SUBJECTIVE: The patient feels better today. He did rest good last night. He denied fever, chills, shortness of breath. OBJECTIVE: Vital Signs: Blood pressure is 164/72 with a heart rate of 96, respirations are 16, temperature is 97.5 oral with oxygen saturations of 96-98% on 2 L nasal cannula. General Appearance: This is a thin, male, sitting on the bedside with no distress. Cardiovascular: Regular rate and rhythm. S1 and S2 appreciated. No rubs, murmurs, or gallops. Pulmonary: He does have decreased air entry throughout. Breath sounds are clear with bilateral chest expansion is equal. No increased work of breathing noted. Gastrointestinal: Abdomen is soft, nontender, nondistended with bowel sounds in all 4 quadrants. Extremities: No clubbing, cyanosis, or edema. Calves are nontender. Pulses are palpable x4. ASSESSMENT AND PLAN: This is a 71-year-old male who is sitting on the bedside in no distress. 1. Right lower lobe pneumonia. We will continue his Zosyn and Levaquin. We will discontinue his vancomycin. Of note, the patient does have failed outpatient treatment for community-acquired pneumonia. 2. Hypertension. Will continue his Adalat. 3. Chronic obstructive pulmonary disease exacerbation, secondary to pneumonia. We will continue with DuoNeb's, steroids to taper, pulmonary toilet. 4. Benign prostatic hypertrophy. We will continue his Hytrin. 5. Chronic pain. We will continue his Ultram. 6. Hypokalemia. We will monitor electrolytes and replete as appropriate. 7. Deep vein thrombosis prophylaxis. We will continue his Lovenox. 8. Gastrointestinal prophylaxis, Prilosec. Dictated by JIN Gomez for Agapito Urrutia MD cc: JIN Gomez MD
[2016-12-25] MEDS: HYTRIN PO SCH (22:10)
[2016-12-25] MEDS: ADALAT CC PO SCH (22:10)
[2016-12-25] MEDS: DESYREL PO SCH (22:10)
[2016-12-26] MEDS: ZOSYN 3.375 GM/NS 3.375 GM/50 ML IVPB IV SCH (03:16)
[2016-12-26] MEDS: DUONEB (A & A) INH SCH ×4 (04:50→16:42)
[2016-12-26] MEDS: PRILOSEC PO SCH (06:00)
[2016-12-26] MEDS: APRESOLINE PO SCH ×3 (06:00→21:21)
[2016-12-26] MEDS: SYNTHROID PO SCH (06:00)
[2016-12-26 06:16] LABS: HEMATOCRIT 37.1 % (42.0-52.0); HEMOGLOBIN 12.2 g/dL (14.0-18.0); MCH 29.8 PG (27-31); MCHC 32.9 g/dL (33-37); MCV 90.5 FL (81-99); MPV 11.2 FL (7.4-10.4); RBC 4.1 XMIL (4.7-6.1)
[2016-12-26 06:38] LABS: ALBUMIN 3.4 g/dL (3.5-5.0); CALCIUM 8.9 mg/dL (8.8-10.2); POTASSIUM 3.1 mmol/L (3.5-5.1); TOTAL BILIRUBIN 0.5 mg/dL (0.20-1.00); TOTAL PROTEIN 5.3 g/dL (6.3-8.3)
[2016-12-26] MEDS: SYMBICORT 160/4.5 MICROGM INHALER INH SCH ×2 (08:00→22:18)
[2016-12-26] MEDS: LOVENOX SUBQ SCH (08:07)
[2016-12-26] MEDS: SOLU-MEDROL IV SCH (08:07)
[2016-12-26] MEDS: MIRALAX PO SCH (08:08)
[2016-12-26] MEDS: XANAX PO SCH ×2 (08:08→21:22)
--- NOTE | 2016-12-26 10:07 | PROGRESS NOTE ---
DATE: 12/26/2016 SUBJECTIVE: The patient notes that he is feeling a little bit better. He did have a bad night last night. He has been up and moving about some but not a bunch. Denies any current chest pains or palpitations, denies any fevers or chills. States that he is still having some shortness of breath. PHYSICAL EXAMINATION: Vital signs: Temp 98, pulse 103, respiratory 16, BP 137/76, sat 92% on 2 L. General: The patient is awake, alert. He is in no distress. HEENT: Normocephalic, atraumatic. Neck: Supple. CV: Regular rate. Chest: Relatively clear. Abdomen: Soft. ASSESSMENT: 1. Healthcare-associated pneumonia. 2. Hypoxemia. 3. Hypertension. 4. Chronic obstructive pulmonary disease. 5. Benign prostatic hypertrophy. 6. Chronic insomnia. 7. Hypokalemia, potassium 3.1. 8. Mild protein calorie malnutrition. PLAN: Will change patient over to p.o. antibiotics today. He is on Solu-Medrol daily. Hopefully can discharge home later this afternoon if he continues to improve. cc: Agaipto Urrutia MD
[2016-12-26] MEDS: AUGMENTIN PO SCH ×2 (11:19→21:22)
[2016-12-26] MEDS ORDERED: MORPHINE IV ONE (16:47)
[2016-12-26] MEDS: HYTRIN PO SCH (21:21)
[2016-12-26] MEDS: DESYREL PO SCH (21:22)
[2016-12-26] MEDS: ADALAT CC PO SCH (21:22)
[2016-12-27] MEDS: DUONEB (A & A) INH SCH ×2 (03:11→09:44)
[2016-12-27] MEDS: SYNTHROID PO SCH ×2 (05:58→06:14)
[2016-12-27] MEDS: PRILOSEC PO SCH ×2 (05:58→06:14)
[2016-12-27] MEDS: APRESOLINE PO SCH ×3 (05:58→21:40)
[2016-12-27 05:59] LABS: MCH 29.6 PG (27-31); MCHC 32.4 g/dL (33-37); MCV 91.1 FL (81-99); MPV 10.9 FL (7.4-10.4); RBC 4.06 XMIL (4.7-6.1)
[2016-12-27 07:02] LABS: AGAP 7; ALBUMIN 3.2 g/dL (3.5-5.0); ALKALINE PHOSPHATASE 78 U/L (32-122); BUN 19 mg/dL (8-22); CALCIUM 8.6 mg/dL (8.8-10.2); CHLORIDE 104 mmol/L (98-107); COSMO 280; GOT 29 U/L (10-34); GPT 52 U/L (10-44); MAGNESIUM 2.4 mg/dL (1.5-2.7); POTASSIUM 3.6 mmol/L (3.5-5.1); SODIUM 139 mmol/L (136-145); TCO2 28 mmol/L (25-35); TOTAL PROTEIN 5.2 g/dL (6.3-8.3)
[2016-12-27] MEDS ORDERED: DUONEB (A & A) ONE (08:14)
--- NOTE | 2016-12-27 08:46 | Diag Imaging Result Document ---
PROCEDURE NAME: ANGIOGRAM/PULMONARY ARTERIES - 12/26/2016 CT ANGIOGRAM PULMONARY ARTERIES WITH IV CONTRAST: COMPARISON: 12/20/2016. FINDINGS: There is baseline pulmonary emphysema. There is appropriate opacification of the pulmonary arteries. There are no filling defects to suggest acute pulmonary embolism. There is no evidence for aortic dissection. There are area of increased attenuation within the anterior right upper lobe and left upper lobe abutting the anterior chest wall. There is a new right pleural effusion. There is increased dense consolidation of the entire right lower lobe. This has increased from the prior study. There is increasing left lower lobe consolidation and a new trace left effusion. There is a pericardial effusion, maximal dimension 12 mm, increased from the prior study. There is coronary artery calcification. Incidental note is made of a 3.7 cm cystic mass within the tail of the pancreas. There are some adjacent pancreatic calcifications. Findings could represent a pancreatic pseudocyst or serous or mucinous pancreatic neoplasm. Follow up is recommended as the patient advances clinically. There is a small amount of ascites. There is a 2 cm cyst, left kidney. IMPRESSION: 1. Worsening extensive consolidation of the right lower lobe, suspicious for pneumonia. Endobronchial obstruction is not excluded. 2. New right effusion. 3. Increasing left lower lobe consolidation. 4. Irregular areas of consolidation within the anterior upper lobes. 5. No evidence for acute PE. 6. Small pericardial effusion. 7. Indeterminate 3.6 cm cystic pancreatic tail mass, which could be inflammatory , such as a pseudocyst or a cystic pancreatic neoplasm. Follow up is recommended as patient condition allows. 8. Small amount of abdominal ascites. MTDD
[2016-12-27] MEDS ORDERED: ZOSYN 3.375 GM/NS 3.375 GM/50 ML IVPB IV SCH ×2 (09:00→14:00)
[2016-12-27] MEDS ORDERED: VANCOMYCIN IV PER PHARMACY MISC SCH (09:00)
[2016-12-27] MEDS: MIRALAX PO SCH (09:25)
[2016-12-27] MEDS: XANAX PO SCH ×2 (09:25→20:59)
[2016-12-27] MEDS: LOVENOX SUBQ SCH (09:25)
[2016-12-27] MEDS: SOLU-MEDROL IV SCH (09:26)
[2016-12-27] MEDS: SYMBICORT 160/4.5 MICROGM INHALER INH SCH ×2 (09:49→19:28)
--- NOTE | 2016-12-27 12:28 | PROGRESS NOTE ---
DATE: 12/27/2106 SUBJECTIVE: The patient states that he is feeling worse today. He did have a bad night. He continues to be short of breath. Through the day yesterday, he had shortness of breath with exertion. He felt comfortable sitting still. This morning, he complains of shortness of breath at rest and he is sitting on the side of the bed leaning on the bedside tray during exam. He denies chest pain, palpitations, syncope, dizziness. OBJECTIVE: Vital Signs: Blood pressure is 166/82 with a heart rate of 101. Respirations are 21. Oxygen saturations are 93-95 on 3 L nasal cannula. Cardiovascular: Regular rate and rhythm. S1 and S2 appreciated. Pulmonary: Breath sounds are diminished throughout with prolonged expiration with no increased work of breathing noted. Gastrointestinal: Abdomen is soft, nontender, nondistended with bowel sounds in all 4 quadrants. Extremities: No clubbing, cyanosis, or edema. Calves are nontender. Pulses are palpable x4. Neurologic: He is alert and oriented x3. DIAGNOSTICS: WBC is 10.6 with a hemoglobin of 12, hematocrit 37, platelets of 159,000. Sodium is 139, potassium 3.6, BUN 19, creatinine 1.1, with a glucose of 104. Pulmonary arteriogram revealed worsening extensive consolidation on the right lower lobe suspicious for pneumonia. Endobronchial obstruction is not excluded. A new right effusion. Increasing left lower lobe consolidation. Irregular areas of consolidation within the anterior upper lobes. No evidence for acute PE. An indeterminate 3.6 cm cystic pancreatic tail mass which could be inflammatory such as a pseudocyst or a cystic pancreatic neoplasm. A small amount of abdominal ascites. ASSESSMENT AND PLAN: 1. Health-care associated pneumonia in the setting of recent community-acquired pneumonia. 2. Hypoxemia. 3. Hypertension. 4. Chronic obstructive pulmonary disease. 5. Benign prostatic hypertrophy. 6. Pancreatic tail mass, cystic. 7. Hypokalemia. 8. Mild protein calorie malnutrition. We will continue with supplemental oxygen. Continue with pulmonary toilet. As the patient has deteriorated respiratory palomares, we will transferred to [facility] [place] for pulmonary support. We will continue his current regimen. Dictated by JIN Gomez for Agapito Urrutia MD cc: JIN Gomez MD
--- NOTE | 2016-12-27 12:57 | ECHO REPORT ---
ORDER DATE: 12/27/2016 MEASUREMENTS: 1. Interventricular septum 1.1. 2. Left ventricular posterior wall 1.1. 3. Diastolic diameter 3.8. 4. Left atrium 3. 5. Aorta 3.6. SUMMARY OF 2-D IMAGIN. Technically suboptimal study. Poor apical windows. 2. Normal left ventricular cavity size. Estimated ejection fraction of 65% to 70%. Hyperdynamic circulation. 3. Aortic valve leaflets are trileaflet. Pulmonic valve not well visualized. Mitral valve was normal. 4. By Doppler studies, there is no aortic stenosis or regurgitation. 5. There is mild tricuspid regurgitation. Peak velocity across the tricuspid valve was 2.5 m/sec, not accurately obtained. 6. There is trace mitral regurgitation. 7. There is no pericardial effusion. Anterior echo-free space suggestive of pericardial fat pad was noted. There is no obvious intracardiac mass or thrombus seen. cc: MD Annia Torrez CRNP
--- NOTE | 2016-12-27 15:09 | CONSULTATION ---
DATE OF CONSULTATION: 12/27/2016 INDICATION: Tachycardia and dyspnea. HISTORY OF PRESENT ILLNESS: Mr. Marrero is a 71-year-old white male with a history of COPD who presented on the with complaints of shortness of breath. He was found to have a right lower lobe pneumonia and over that time period, he has apparently clinically deteriorated with more shortness of breath. Presently, he is somewhat tachypneic and has to take some rests between short sentences to catch his breath, but overall he is saturating 95% on face mask. His heart rate is in the low 100s. He has no chest pain. He has no cardiac history that he is aware of. PAST MEDICAL HISTORY: 1. Significant for COPD. 2. Hypertension. 3. Hypothyroidism. SOCIAL HISTORY: No alcohol, tobacco, or illicit drug use. He quit smoking roughly 5-6 years ago. He currently gets his care at the [facility]. FAMILY HISTORY: Significant for hypertension. REVIEW OF SYSTEMS: A 10 system review of systems is negative except for those things mentioned in HPI. PHYSICAL EXAMINATION: Vital Signs: The patient is afebrile. His heart rate is currently in the 110s, blood pressure 146/82. General: No acute distress. HEENT: Oropharynx is moist. Normal dentition. Eye examination shows pink conjunctivae, white sclerae. Neck: Examination shows no obvious thyromegaly or thyroid tenderness. Cardiovascular: He sounds to be in a tachycardic but regular rhythm. He has no obvious murmurs. No S3. No lower extremity edema. Chest: Notable for right-sided rales with decreased breath sounds in the right base. He has no increased work of breathing. Abdomen: Soft, nontender, nondistended. No obvious organomegaly. Skin Exam: Warm and dry throughout without any rashes. Neurological: Moving all extremities well. Cranial nerves II through XII are intact without any sensation deficits. Psychiatric: Alert, oriented, pleasant. He has a normal mood and affect. PERTINENT DATA: EF is 65% to 70% hyperdynamic, otherwise no clear evidence of significant valvular abnormalities. He had a pulmonary arteriogram demonstrating worsening extensive consolidation in the right lower lobe suggesting pneumonia. Small pericardial effusion identified. Laboratory data shows a white count of 10.6, his hematocrit is 37, his platelet count is 159,000. Sodium 139, potassium 3.6, BUN 19, creatinine is 1.1. His albumin is 3.2. ASSESSMENT: Severe right-sided pneumonia. PLAN: His echocardiogram is unremarkable. His tachycardia is a compensatory for this right-sided pneumonia. At this point, I have no further recommendations. Please contact us with further questions. cc: Brannon Ryan MD
[2016-12-27] MEDS ORDERED: NS NEB INH SCH (15:30)
[2016-12-27] MEDS: VANCOMYCIN 1,700 MG in NS 250 ML IV SCH (15:34)
[2016-12-27] MEDS ORDERED: MERREM 1 GM in NS 50 ML IV SCH (16:00)
[2016-12-27] MEDS ORDERED: DUONEB (A & A) INH SCH (16:00)
--- NOTE | 2016-12-27 16:23 | PROGRESS NOTE ---
DATE: 12/27/2016 The patient was transferred today from [place] to [facility] for higher care. The patient presented to [place] on 12/20/2016 presumably because of shortness of breath and cough. Of note, the patient was discharged from [place] on 12/15/2016 for same right lower lobe pneumonia. Was discharged on Levaquin and azithromycin however he did not seem to have improved. Went back on 12/20/2016 and has been admitted since with IV antibiotics Zosyn and vancomycin. However he does not seems to be improving so he was transferred over here for further medical management. OBJECTIVE: Vital signs: Now blood pressure is 146/82, pulse of 117, respiration is 15, temperature 97.5 degrees. General: Mr. Marrero is a 71-year-old male. He is in bed, and he has mild respiratory distress. HEENT: Mucosa is pink. Anicteric. Chest: Air entry is bilaterally reduced, more so to the right posterior lung. There is somehow bronchial breath sounds to the right posterior lung with increased vocal fremitus and mild crepitations. There is also some diffuse bilateral end exploratory wheezing in both lung castellon. Cardiovascular: Regular rate and rhythm. Abdomen: Soft. Extremities: No pedal edema. OPERATIONS SUPERVISOR 2ND SHIFT: Patient is alert and oriented x4. There is no focal neurological deficit. LABORATORY DATA: Today has been reviewed. IMAGING STUDIES: Have also been reviewed. Specifically a CTA of the lungs which was done yesterday 12/26 show worsening extensive consolidation of the right lower lobe suspicious for pneumonia. Endobronchial obstruction is not excluded. There is a new right effusion. There is increasing left lower lobe consolidation. There was not any evidence of acute PE. There was also intermediate 3.6 cystic pancreatic tail mass which could be inflammatory such as pseudocyst or cystic pancreatic neoplasm. ASSESSMENT: 1. Severe right-sided pneumonic process. Patient has been treated about 2 weeks ago. Had to come back and has been on IV antibiotics since and still no improvement. There is suspicion of an endobronchial obstruction. Because patient has been on Zosyn and has not shown remarkable improvement, I am concerned about possibility of ESBL. I would therefore switch the Zosyn to carbapenem, shasha 1 g q.8, continue with the vancomycin and also add IV levofloxacin. I.D. has been consulted. Will be pending on their recommendations as well. I have ordered serum IVIG to look for his globulin levels and we have also drained serologies to make sure there is not any underlying inflammatory vascularity that could be presenting this way. I have ordered Legionella and also strep pneumo antigens in the urine. 2. Cystic appearing pancreatic mass. We will do a [id number]-[id number] to see if it is suggestive of a pancreatic disease. A GI consult has been ordered. I think eventually the concern now will be to take care of his respiratory status and if the pancreatic lesion is to be investigated further he will need an EUS which we do not do here in [place]. 3. History of COPD. The patient really did not follow up with any Pulmonary Medicine. He is going to be seen over here by Dr. Norris. We continue with the current nebulization, steroid and antibiotics. cc: Garrett Scott MD
[2016-12-27] MEDS: LEVAQUIN 750 MG/D5W 750 MG/150 ML IVPB IV SCH (17:35)
--- NOTE | 2016-12-27 17:43 | PROGRESS NOTE ---
DATE: 12/27/2016 CONCLUSION: Patient is admitted to the hospital with pneumonia. He appears to have severe COPD due to cigarette smoking. RECOMMENDATIONS: I agree with decision to treat the patient with vancomycin. I have substituted cefepime for meropenem. The patient also is on Levaquin. DISCUSSION: The patient 2-3 weeks ago developed progressive dyspnea and nervousness. He also became weak. His dyspnea was especially noticed when he exerted himself. He has been admitted to [facility] and was improving. He has been transferred to intensive care unit at [facility]. His laboratory studies show a CBC with a white count of 10,610, hemoglobin 12 and platelet count 159,000. Creatinine is 1.1. GFR is greater than 60. Pulmonary angiogram showed bilateral consolidation in the lungs. The echocardiogram showed no vegetation or effusion. Tests for pneumococcus and Legionella are pending. PAST MEDICAL HISTORY/REVIEW OF SYSTEMS: Eyes and ears: He denies difficulty hearing or seeing. Neck: No stiffness. Respiratory: See present illness. Cardiac: No chest pain or palpitations. GI: No nausea, vomiting, or diarrhea. Endocrine: Patient has thyroid disease but not diabetes. Neurologic: The patient is not having seizures. He does not have any motor system loss or sensory system loss. He is not having seizures. Integument: No rash. The remainder of the patient's review of systems was completed and was negative. PREVIOUS HOSPITALIZATIONS AND OPERATIONS: He has had a herniorrhaphy performed and he was hospitalized with which eventually was found to be due to hypothyroidism. MEDICAL DISEASES: Positive for hypothyroidism and hypertension. INFECTIOUS DISEASE HISTORY: Positive for pneumonia and UTI. FAMILY HISTORY: Positive for myocardial infarction and stroke. SOCIAL HISTORY: The patient lives in [place]. He smokes cigarettes. He is . He lives alone. Has no pets. ALLERGIES: Does not have any drug allergies. HOME MEDICATIONS: Include the is he is on budesonide/formoterol inhaler which is Symbicort inhaler, Combivent, albuterol, nifedipine, trazodone, tramadol, terazosin, levothyroxine, prednisone and Augmentin. PHYSICAL EXAMINATION: Head, eyes, ears, nose, and throat: He can hear my spoken words and see near objects. He does not have any drainage from his nose or ears. Neck: No meningismus. Thorax: There is an increased AP diameter to the chest. Lungs: Clear to auscultation. Cardiovascular: Heart rate is regular. Abdomen: Soft and nontender. Neurologic: Patient is awake. He can move his extremities. There is no tremor. Integument: No rash noted. Thank you for the consult. cc: Aubrey Gutierrez MD
[2016-12-27] MEDS: ATROVENT NEB INH SCH ×2 (19:26→19:27)
[2016-12-27] MEDS: XOPENEX NEB INH SCH ×2 (19:26→19:28)
[2016-12-27] MEDS: MAXIPIME 2 GM/NS 2 GM/100 ML IVPB IV SCH (20:05)
[2016-12-27] MEDS: DESYREL PO SCH (20:59)
[2016-12-27] MEDS: ADALAT CC PO SCH (21:00)
[2016-12-27] MEDS ORDERED: LASIX IV ONE (21:26)
[2016-12-27] MEDS: ULTRAM PO PRN (21:38)
[2016-12-27] MEDS: HYTRIN PO SCH (21:40)
--- NOTE | 2016-12-27 23:24 | CONSULTATION ---
DATE OF CONSULTATION: 12/27/2016 REQUESTING PHYSICIAN: Dr. Urrutia. REASON FOR CONSULTATION: Persistent pneumonia. HISTORY OF PRESENT ILLNESS: Mr. Marrero is a 71-year-old white male, with a greater than 40-pack- year history for tobacco, possible asbestos exposure, who has had diagnosis of COPD for the last 6 to 7 years. He has been a nonsmoker since 2011. The patient has no recent history at this hospital, except for an admission for pneumonia earlier this month. The patient reports he did have chest x-rays and possibly a CT scan in [place], performed by Dr. Capone, approximately 1 year ago. He is not aware of the results of these films. The patient reports he has lost approximately 30 pounds over the last year. He was admitted to the hospital at [place] from, 12/13/2016 to 12/15/2016, and was diagnosed with bilateral pneumonia, but dense consolidation in the right lower lobe. The patient remained afebrile during that stay. He had no leukocytosis during that stay. His shortness of breath did not improve, and he returned to the emergency room, on 12/20/2016. Chest x-ray continues to reveal dense infiltrates predominantly in the right lower lobe. Pulmonary consultation was requested. Infectious disease is also seeing this patient. PAST MEDICAL HISTORY: 1. COPD as per above. 2. Recent admission to the hospital, without improvement as per above. 3. Hypertension. 4. Hypothyroidism. 5. Status post hernia repair. SOCIAL HISTORY: A [id number] history for tobacco. No recent alcohol use. 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 He denies tuberculosis exposure. FAMILY HISTORY: Noncontributory to current presentation. REVIEW OF SYSTEMS: As noted in the HPI. PHYSICAL EXAMINATION: General: Reveals a chronically ill-appearing, white male, resting comfortably and in no distress. Vital signs: He is afebrile. Blood pressure 123/73, heart rate 86, respiration rate 14, oxygen saturation 97% on 50% face mask. HEENT: Mild temporal wasting. EOMI, PERRL. Oropharynx is clear. Neck: Supple. Chest: Reveals markedly diminished breath sounds in the right base with distant E:A changes. Cardiac: Distant heart sounds. Normal S1, normal S2. Abdomen: Scaphoid and soft. Extremities: Without edema. LABORATORIES: White blood count 10.61, hemoglobin 12.0, platelet count 159,000. Chemistry: Sodium 139, potassium 3.6, chloride 104, bicarbonate 28, BUN 19, creatinine 1.1. C-reactive protein is 5.0. CEA level slightly elevated at 4.7. IMPRESSION: A 71-year-old with dense consolidation in the right lower lobe. Patient received antibiotics for pneumonia without improvement. He did not have a typical presentation for pneumonia. He did not have high fevers, he did not have copious amounts of purulent sputum production, he did not have leukocytosis. The patient clearly has had a decline over the last year, and has lost [address] scan may represent a nonresolving infectious process, such as an untreated gram-negative organism, but this could represent a more chronic disease process such as bronchoalveolar cell carcinoma. RECOMMENDATIONS: 1. Attempt to obtain additional sputum for culture and sensitivity. 2. Continue antibiotics as outlined by Dr. Aubrey Gutierrez. 3. Attempt to obtain previous x-rays or CT scans from [facility], to see if he had a process in the right base on prior films. 4. Anticipate bronchoscopy and transbronchial biopsies early next week, if he does not clinically improve. cc: Alfred Norris MD
[2016-12-28] MEDS: XOPENEX NEB INH SCH ×4 (03:13→19:06)
[2016-12-28] MEDS: ATROVENT NEB INH SCH ×4 (03:13→19:07)
[2016-12-28 04:35] LABS: ALLEN TEST YES; BE 5.7 mmoll (-3.0-3.0); BLOOD TYPE ARTERIAL; DRAW SITE R RADIAL; O2(CT) 15.2 mL/dL (15.0-23.0); PCO2(98.6) 45 mmHg (35-45); PO2(98.6) 97 mmHg (60-100); SAMPLE BLOOD; SAO2 99.5 % (95.0-100.0); THB 11.2 g/dL (11.5-17.4); pH(98.6) 7.44 (7.35-7.45)
[2016-12-28 04:37] LABS: MODALITY VENTIMASK
[2016-12-28] MEDS: APRESOLINE PO SCH ×3 (05:55→22:47)
[2016-12-28] MEDS: PRILOSEC PO SCH (06:05)
[2016-12-28] MEDS: SYNTHROID PO SCH (06:06)
[2016-12-28] MEDS: XANAX PO SCH ×2 (08:10→22:50)
[2016-12-28] MEDS: MAXIPIME 2 GM/NS 2 GM/100 ML IVPB IV SCH ×2 (08:11→19:25)
[2016-12-28] MEDS: SOLU-MEDROL IV SCH (08:12)
[2016-12-28] MEDS: LOVENOX SUBQ SCH (08:13)
[2016-12-28] MEDS: MIRALAX PO SCH (08:13)
--- NOTE | 2016-12-28 08:38 | Diag Imaging Result Document ---
PROCEDURE NAME: CHEST-PORTABLE - 12/28/2016 PORTABLE CHEST: COMPARISON: 12/23/2016. FINDINGS: Interval worsening in the right sided infiltrates. There is near complete opacification of the right lower lobe on the current exam. There is also a small right pleural effusion. The heart is not enlarged. The left lung is hyperexpanded. Development of small infiltrates in the left base. IMPRESSION: Interval worsening in right sided pneumonia with a small right effusion as well as development of a small infiltrate in the left base.
[2016-12-28] MEDS: SYMBICORT 160/4.5 MICROGM INHALER INH SCH ×2 (08:55→19:06)
[2016-12-28 10:42] LABS: EOS# 0.12 X1000 (0.0-0.7); EOS% 1.3 % (0.0-10.0); HEMOGLOBIN 11.8 g/dL (14.0-18.0); IMM GRAN# 0.03 X1000 (0.0-0.04); IMM GRAN% 0.3 % (0.0-0.5); LYMPH% 8.4 % (20.5-51.1); MANUAL DIFF NEEDED? NO; MCH 30.1 PG (27-31); MCHC 32.8 g/dL (33-37); MCV 91.8 FL (81-99); MONO# 0.44 X1000 (0.11-0.59); MONO% 4.6 % (1.7-9.3); MPV 10.6 FL (7.4-10.4); NEUT% 85.4 % (42.2-75.2); PLT 146 X1000 (130-400); RBC 3.92 XMIL (4.7-6.1)
--- NOTE | 2016-12-28 10:51 | PROGRESS NOTE ---
DATE: 12/28/2016 SUBJECTIVE: Today, Mr. Marrero referred to be doing marginally okay. No new complaints. Still has some baseline shortness of breath and is currently on face mask oxygenation. OBJECTIVE: Vital Signs: Blood pressure is 119/64, pulse 81, respirations 22, temperature is 97.3 degrees. The patient is saturating 93% on face mask. General: Mr. Marrero is a 71-year-old male. He was in bed in mild respiratory distress. HEENT: Mucosa is pink and moist. Anicteric. Acyanotic. Neck is supple. Chest: Good air entry bilaterally. No crepitations. No rhonchi. Air entry is bilaterally reduced, more so to the right posterior lung field. There are bibasilar crepitations. Cardiovascular: Regular rate and rhythm. No murmurs. No rubs. No gallops. Abdomen is soft. Extremities: No pedal edema. LABORATORY DATA: None for today. DIAGNOSTIC STUDIES: A chest x-ray this morning shows interval worsening in the right side pneumonia with small right effusion as well as development of small infiltrate in the left base. ASSESSMENT: 1. Right lower lung massive consolidation suspicious for pneumonic process; however, underlying bronchoalveolar carcinoma cannot be ruled out. Patient is currently on IV antibiotics. He is being seen by Dr. Gutierrez's service. He has also been seen by Dr. Norris. There is a suggestion for bronchoscopy on Friday. 2. 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 We are still pending report. 3. Chronic obstructive pulmonary disease. We will continue with the current therapy. 4. Bilateral mild pleural effusions. I think this is probably from hydration. This has been stopped. The patient has been given some Lasix to help with the fluid management. 5. Hypothyroidism. We will continue with the thyroid supplements. cc: Garrett Scott MD MTDToan
[2016-12-28 11:51] LABS: ALBUMIN 3.3 g/dL (3.5-5.0); CALCIUM 8.8 mg/dL (8.8-10.2); POTASSIUM 4.4 mmol/L (3.5-5.1); TOTAL BILIRUBIN 0.36 mg/dL (0.20-1.00); TOTAL PROTEIN 5.6 g/dL (6.3-8.3)
[2016-12-28] MEDS: ULTRAM PO PRN ×2 (14:33→21:00)
[2016-12-28] MEDS: MORPHINE IV PRN (15:05)
[2016-12-28] MEDS: VANCOMYCIN 1,700 MG in NS 250 ML IV SCH (15:58)
[2016-12-28] MEDS: LEVAQUIN 750 MG/D5W 750 MG/150 ML IVPB IV SCH (17:36)
[2016-12-28] MEDS: DESYREL PO SCH (20:51)
[2016-12-28] MEDS: ADALAT CC PO SCH (20:52)
[2016-12-28] MEDS: HYTRIN PO SCH (20:53)
[2016-12-29] MEDS: MORPHINE IV PRN (00:39)
[2016-12-29] MEDS: ATROVENT NEB INH SCH ×4 (03:37→19:59)
[2016-12-29] MEDS: XOPENEX NEB INH SCH ×4 (03:37→20:00)
[2016-12-29 05:29] LABS: MANUAL DIFF NEEDED? NO
[2016-12-29 05:34] LABS: BASO% 0.1 % (0.0-0.8); EOS# 0.07 X1000 (0.0-0.7); EOS% 0.8 % (0.0-10.0); HEMATOCRIT 33.4 % (42.0-52.0); IMM GRAN# 0.02 X1000 (0.0-0.04); IMM GRAN% 0.2 % (0.0-0.5); LYMPH# 1.46 X1000 (1.2-3.4); LYMPH% 15.6 % (20.5-51.1); MCH 30.1 PG (27-31); MCHC 32.9 g/dL (33-37); MCV 91.5 FL (81-99); MONO# 0.96 X1000 (0.11-0.59); MONO% 10.3 % (1.7-9.3); MPV 11.1 FL (7.4-10.4); PLT 146 X1000 (130-400); RBC 3.65 XMIL (4.7-6.1)
[2016-12-29 06:10] LABS: CALCIUM 8.3 mg/dL (8.8-10.2); POTASSIUM 3.7 mmol/L (3.5-5.1); TOTAL BILIRUBIN 0.26 mg/dL (0.20-1.00); TOTAL PROTEIN 5.3 g/dL (6.3-8.3)
[2016-12-29] MEDS: ULTRAM PO PRN ×2 (06:14→19:31)
[2016-12-29] MEDS: PRILOSEC PO SCH (06:15)
[2016-12-29] MEDS: APRESOLINE PO SCH ×3 (06:15→21:34)
[2016-12-29] MEDS: SYNTHROID PO SCH (06:15)
[2016-12-29] MEDS: MAXIPIME 2 GM/NS 2 GM/100 ML IVPB IV SCH ×2 (07:57→19:31)
[2016-12-29] MEDS: MIRALAX PO SCH (08:00)
[2016-12-29] MEDS: SOLU-MEDROL IV SCH (08:00)
[2016-12-29] MEDS: LOVENOX SUBQ SCH (08:00)
[2016-12-29] MEDS: XANAX PO SCH ×2 (08:00→20:14)
[2016-12-29 08:19] LABS: HIV ANTIBODY SCREEN SEE COMMENTS
[2016-12-29] MEDS: SYMBICORT 160/4.5 MICROGM INHALER INH SCH ×2 (09:07→19:59)
[2016-12-29] MEDS: VANCOMYCIN 1,700 MG in NS 250 ML IV SCH (15:04)
--- NOTE | 2016-12-29 16:35 | PROGRESS NOTE ---
DATE: 12/29/2016 SUBJECTIVE: Today Mr. Marrero refers to be doing a little better. He continues to have cough with whitish expectoration. OBJECTIVE: Vital signs: Blood pressure is 134/80, pulse of 83, respirations 14, temperature is 97.0 degrees. General: Mr. Marrero is a 71-year-old male. He was in bed, in no distress. HEENT: Mucosa is pink and moist. Anicteric. Acyanotic. Neck: Supple. Chest: Air entry is bilaterally reduced, more so to the right posterior lung field. There are some bibasilar crepitations. Cardiovascular: Regular rate and rhythm. No murmurs. No rubs. No gallops. Abdomen: Soft, nontender. Extremities: No pedal edema. LOSS CONTROL MANAGER: Patient is alert and oriented x4. There is no focal neurological deficit. LABORATORY DATA: WBC is 9.33, hemoglobin is 11.0, platelet count of 146,000. Chemistry is reviewed. Creatinine is 1.3. ASSESSMENT: 1. Right lower lung massive consolidation suspicious for pneumonic process versus underlying bronchoalveolar carcinoma. Patient is pending bronchoscopy tomorrow as per Dr. Norris and he is also being followed by ID. 2. Cystic pancreatic mass. Unsure of its nature. CA-19-9 has been sent. We are still pending the report. Patient will need to follow up with GI for possible EUS with biopsy. 3. Chronic obstructive pulmonary disease. 4. Bilateral mild pleural effusions. The patient was given Lasix yesterday and I think that has probably also bumped up the creatinine a little bit. 5. Hypothyroidism, noted. Will continue with the thyroid supplements. 6. Acute kidney injury. Patient was given a dose of Lasix 60 mg on the and subsequently the following day and today the creatinine has gotten a little hit. Will stay away from the diuretics since the patient does not really look overtly volume overloaded. The patient is also on vancomycin. I did call the pharmacy to double check the levels which it is actually 15.2, also within the therapy range. Will ensure to avoid any nephrotoxic drugs. 7. Hypogammaglobulinemia. The patient does have low IgG levels and I think he would definitely benefit from IgG therapy. Will, however, await ID to evaluate him for this. cc: Garrett Scott MD
[2016-12-29] MEDS: LEVAQUIN 750 MG/D5W 750 MG/150 ML IVPB IV SCH (17:54)
[2016-12-29] MEDS ORDERED: FLEBOGAMMA DIF 5% IV ONE (20:00)
[2016-12-29] MEDS: ADALAT CC PO SCH (20:14)
[2016-12-29] MEDS: DESYREL PO SCH (20:14)
[2016-12-29] MEDS: HYTRIN PO SCH (20:14)
[2016-12-30] MEDS: ATROVENT NEB INH SCH ×4 (03:33→21:38)
[2016-12-30] MEDS: XOPENEX NEB INH SCH ×4 (03:33→21:38)
[2016-12-30] MEDS: SYNTHROID PO SCH (06:01)
[2016-12-30] MEDS: APRESOLINE PO SCH ×3 (06:01→22:18)
[2016-12-30] MEDS: PRILOSEC PO SCH (06:02)
[2016-12-30 07:08] LABS: MANUAL DIFF NEEDED? NO
[2016-12-30 07:31] LABS: EOS# 0.05 X1000 (0.0-0.7); EOS% 0.7 % (0.0-10.0); HEMATOCRIT 34.5 % (42.0-52.0); HEMOGLOBIN 11.5 g/dL (14.0-18.0); IMM GRAN# 0.03 X1000 (0.0-0.04); IMM GRAN% 0.4 % (0.0-0.5); LYMPH# 1.03 X1000 (1.2-3.4); LYMPH% 14.3 % (20.5-51.1); MCH 30.4 PG (27-31); MCHC 33.3 g/dL (33-37); MCV 91.3 FL (81-99); MONO% 8.4 % (1.7-9.3); NEUT% 76.2 % (42.2-75.2); PLT 144 X1000 (130-400); RBC 3.78 XMIL (4.7-6.1)
[2016-12-30 07:33] LABS: ALBUMIN 3.1 g/dL (3.5-5.0); CALCIUM 8.5 mg/dL (8.8-10.2); POTASSIUM 3.7 mmol/L (3.5-5.1); TOTAL BILIRUBIN 0.33 mg/dL (0.20-1.00); TOTAL PROTEIN 6.4 g/dL (6.3-8.3)
[2016-12-30] MEDS ORDERED: XYLOCAINE 2% VISCOUS ONE (08:35)
[2016-12-30] MEDS ORDERED: XYLOCAINE 1% ONE (08:35)
[2016-12-30] MEDS ORDERED: XYLOCAINE 2% ONE (08:35)
[2016-12-30] MEDS ORDERED: EPINEPHRINE ONE (08:36)
[2016-12-30] MEDS ORDERED: SODIUM CHLORIDE 0.9% 20 ML ONE (08:36)
[2016-12-30] MEDS: MAXIPIME 2 GM/NS 2 GM/100 ML IVPB IV SCH ×2 (08:39→19:25)
[2016-12-30] MEDS ORDERED: DIPRIVAN 1% 500 MG/50 ML BOTTLE ONE (08:52)
[2016-12-30] MEDS: MIRALAX PO SCH (10:24)
[2016-12-30] MEDS: XANAX PO SCH ×2 (10:24→20:12)
[2016-12-30] MEDS: SOLU-MEDROL IV SCH (10:27)
[2016-12-30] MEDS: SYMBICORT 160/4.5 MICROGM INHALER INH SCH ×2 (10:50→21:37)
--- NOTE | 2016-12-30 11:32 | Diag Imaging Result Document ---
PROCEDURE NAME: CHEST-PORTABLE - 12/30/2016 AP PORTABLE CHEST AT 1057 HOURS: FINDINGS: There is COPD. There is alveolar opacity through much of the right lung and to some extent in the left base. There may be slight improvement in the right apex since 12/28/2016. IMPRESSION: Mildly improved pneumonia on the right.
--- NOTE | 2016-12-30 12:00 | OPERATIVE NOTE ---
PROCEDURE DATE: PROCEDURE PERFORMED: Bronchoscopy with washing of the trachea, washing of the right lower lobe, and transbronchial biopsies of the right lower lobe. PROVIDER: Alfred Norris MD CLINICAL INDICATIONS: This is a 71-year-old with severe chronic obstructive pulmonary disease and persistent right lower lobe dense consolidation. DESCRIPTION OF PROCEDURE: After informed consent was obtained, the patient was brought to the operating room, where the procedure was performed. Topical anesthesia was achieved with viscous lidocaine to the right nostril with 2% lidocaine instilled above the vocal cords and 1% lidocaine instilled below the vocal cords during the procedure. Conscious sedation was provided by the anesthesia services group. When sedation and topical anesthesia were achieved, the bronchoscope was advanced through the right nostril to the level of the vocal cords. The vocal cords were smooth and without lesions. Both vocal cords moved appropriately on abduction and abduction. The bronchoscope was advanced into the trachea. There were no significant increased secretions in the trachea. Airways to the left and right mainstem, left upper lobe, lingula, left lower lobe, right upper lobe, right middle lobe, and right lower lobe were all patent and without lesions. Despite the dense consolidation of the right lower lobe, there was no significant pus emanating from the right lower lobe segment. A washing was taken from the trachea and proximal bronchi. The bronchoscope was wedged into the anterior segment of the right lower lobe and a wash was performed with 30 mL aliquots of normal saline with adequate return. When the washing was completed, multiple biopsies were taken from the anterior and lateral segment of the right lower lobe under fluoroscopic guidance. Minor bleeding was noted and epinephrine was instilled into the anterior segment following biopsies. When the biopsies were completed, the right apex was visualized. No significant pneumothorax was identified. A postprocedure chest x-ray will be performed to confirm this finding. IMPRESSION: Status post successful bronchoscopy with washing of the trachea, washing of the right lower lobe, and transbronchial biopsies of the right lower lobe. cc: Alfred Norris MD
[2016-12-30] MEDS ORDERED: KETAMINE (DOSE) ONE (12:08)
[2016-12-30] MEDS ORDERED: VERSED ONE (12:09)
[2016-12-30] MEDS ORDERED: XYLOCAINE-MPF 2% ONE (12:29)
[2016-12-30] MEDS: VANCOMYCIN 1,700 MG in NS 250 ML IV SCH (14:49)
[2016-12-30] MEDS ORDERED: ATIVAN ONE (15:09)
--- NOTE | 2016-12-30 17:02 | PROGRESS NOTE ---
DATE: 12/30/2016 SUBJECTIVE: Today Mr. Marrero referred to be stable. He does not have any acute complaints. He still has some residual shortness of breath and cough with tinged blood. He just finished the bronchoscopy. OBJECTIVE: Vital Signs: Blood pressure is 113/82, pulse of 93, respirations 16 , temperature is 97.5 degrees. The patient is saturating 96% on face mask. General: Mr. Marrero is a 71-year-old male. He is in bed. He does not seems to be in remarkable distress. HEENT: Mucosa is pink and moist. Anicteric. Acyanotic. Chest: Air entry is bilaterally reduced, more so to the right posterior lung field. There is some bibasilar crepitations. Cardiovascular: Regular rate and rhythm. No murmurs, no rubs, no gallops. Abdomen: Soft, nontender. There is no hepatosplenomegaly. Extremities: No pedal edema. Central Nervous System: The patient is alert and oriented x4. LABORATORY DATA: WBC 7.18, hemoglobin is 11.5, platelet count of 144,000. Chemistry is reviewed. Creatinine continued to be 1.3. The urine Legionella antigen is negative. Streptococcus pneumoniae antigen is negative. HIV is negative. The patient's IgG level is 452, which is remarkably low. ASSESSMENT AND PLAN: 1. Right lower lung massive consolidation suspicious for pneumonic process. The patient is status post bronchoscopy and some biopsies. We are pending the reports and the biopsy results. For now, we will continue with the current antibiotic coverage, which includes cefepime, levofloxacin, and vancomycin. The patient is also being followed up by Dr. Gutierrez. 2. Cystic pancreatic mass. We are still unsure what type of mass it is. We ordered a CA 19-9. The CA 19-9 is extremely at 362, which is kind of suspicious for a pancreatic cancer. We would, therefore, consult Hematology/Oncology and also Gastrointestinal for further workup. 3. Hypothyroidism. We will continue with the thyroid supplements. 4. Acute kidney injury. This is stable. I think part of it could be because the patient was given Lasix. We will withhold any diuretics and any nephrotoxic medications and follow up with repeat renal functions for tomorrow. 5. Hypogammaglobinemia. The patient was given a dose of IVIG yesterday by Dr. Gutierrez. In general, Mr. Marrero is a 71-year-old male who has been seen on 2 occasions for the same right lower lobe infiltrates at [place]. However, at this time, it was deemed necessary to bring him to [facility] to evaluate him. He had a bronchoscopy today. From the report of the bronchoscopy, it does not look like there was any mass obstructing the right lower lobe bronchus, which makes a pneumonic process the most likely process. However, we still have on the cytologies and the cultures. We will continue with the current antibiotics for that. Also of concern is the cystic pancreatic mass, which was found on the CT scan. The CA 19-9 is extremely elevated, and there is a concern for a pancreatic cancer. We would, therefore, consult Hematology/Oncology and also Gastrointestinal to see if they will be able to get any tissue. cc: Garrett Scott MD MTDD
[2016-12-30] MEDS ORDERED: XANAX PO ONE (17:14)
[2016-12-30] MEDS: LEVAQUIN 750 MG/D5W 750 MG/150 ML IVPB IV SCH (17:23)
[2016-12-30] MEDS: ADALAT CC PO SCH (20:12)
[2016-12-30] MEDS: HYTRIN PO SCH (20:12)
[2016-12-30] MEDS: DESYREL PO SCH (20:13)
--- NOTE | 2016-12-31 00:05 | PROGRESS NOTE ---
DATE: 12/30/2016 PRESENT ILLNESS: The patient has pneumonia, which appears to be improving on chest x-ray. He also was found today to have a low IgG level at 452. MEDICATIONS: The patient is receiving cefepime, Levaquin and vancomycin all IV. PHYSICAL EXAMINATION: Vital Signs: Temperature is 98.2, pulse 107, respirations 15, blood pressure 125/67. Generally: This is a fairly healthy-appearing, elderly male. He is in no acute distress at this time. He had bronchoscopy today. Lungs: Clear to auscultation. Cardiovascular: Regular heart rate. Abdomen: Soft, without masses or tenderness. LAB AND X-RAY: Chest x-ray shows improvement of the right-sided pneumonia. The left side looks about the same. Patient's CBC shows a white count of 7,180, hemoglobin 11.5, and platelet count 144,000. Creatinine is 1.3. GFR is 54. IgG was 452. IgA was 185. The patient had bronchoscopy today. The results of that are pending. The patient also received IV IG today. Patient's serology for HIV infection, Legionella and pneumococcal infections are all negative. ASSESSMENT AND PLAN: Patient has a severe pneumonia. I have discontinued Levaquin, so the patient now will be treated with a combination of vancomycin and cefepime. He also has an immunoglobulin deficiency, and he was given today a treatment with IV gammaglobulin. Patient's comorbidities with the includes the following. He has severe COPD. He is a cigarette smoker, and now he appears to have an immunoglobulin deficiency. cc: Aubrey Gutierrez MD
[2016-12-31] MEDS: ATIVAN IV PRN ×3 (00:55→21:13)
[2016-12-31] MEDS: MORPHINE IV PRN ×4 (00:59→22:13)
[2016-12-31] MEDS ORDERED: HALDOL IM ONE (01:58)
[2016-12-31] MEDS ORDERED: ATIVAN IV ONE (02:59)
[2016-12-31] MEDS: ATROVENT NEB INH SCH ×4 (03:34→21:20)
[2016-12-31] MEDS: XOPENEX NEB INH SCH ×4 (03:34→21:20)
[2016-12-31] MEDS: SYNTHROID PO SCH (06:03)
[2016-12-31] MEDS: PRILOSEC PO SCH (06:03)
[2016-12-31] MEDS: APRESOLINE PO SCH ×3 (06:04→21:22)
[2016-12-31 06:25] LABS: ALLEN TEST YES; BE 2.3 mmoll (-3.0-3.0); BLOOD TYPE ARTERIAL; DRAW SITE R RADIAL; METHB 1.9 % (0.0-1.5); O2(CT) 16.1 mL/dL (15.0-23.0); PCO2(98.6) 46 mmHg (35-45); PO2(98.6) 66 mmHg (60-100); SAMPLE BLOOD; SAO2 96.8 % (95.0-100.0); THB 12.3 g/dL (11.5-17.4); pH(98.6) 7.39 (7.35-7.45)
[2016-12-31 06:26] LABS: MODALITY NRB
[2016-12-31 07:01] LABS: MANUAL DIFF NEEDED? NO
[2016-12-31 07:05] LABS: BASO% 0.1 % (0.0-0.8); EOS# 0.02 X1000 (0.0-0.7); EOS% 0.2 % (0.0-10.0); HEMATOCRIT 36.8 % (42.0-52.0); HEMOGLOBIN 12.4 g/dL (14.0-18.0); IMM GRAN# 0.04 X1000 (0.0-0.04); IMM GRAN% 0.4 % (0.0-0.5); LYMPH# 0.93 X1000 (1.2-3.4); LYMPH% 8.4 % (20.5-51.1); MCH 30.6 PG (27-31); MCHC 33.7 g/dL (33-37); MCV 90.9 FL (81-99); MONO# 0.83 X1000 (0.11-0.59); MONO% 7.5 % (1.7-9.3); MPV 10.4 FL (7.4-10.4); NEUT% 83.4 % (42.2-75.2); PLT 163 X1000 (130-400); RBC 4.05 XMIL (4.7-6.1)
[2016-12-31 07:19] LABS: CALCIUM 8.6 mg/dL (8.8-10.2); POTASSIUM 3.8 mmol/L (3.5-5.1)
--- NOTE | 2016-12-31 07:44 | Diag Imaging Result Document ---
PROCEDURE NAME: CHEST-PORTABLE - 12/31/2016 SINGLE FRONTAL RADIOGRAPH OF THE CHEST: COMPARISON: 12/30/2016. FINDINGS: Consolidation at the mid and lower right lung zone appears to have slightly worsened as it is more dense in places, especially in the mid lung zone at the periphery. The much milder opacity at the left lung base is approximately stable. Otherwise, no new consolidations are identified. Cardiac silhouette is stable. IMPRESSION: Suggestion of interval mild worsening on the right.
[2016-12-31] MEDS: MAXIPIME 2 GM/NS 2 GM/100 ML IVPB IV SCH ×2 (08:16→20:29)
[2016-12-31] MEDS: XANAX PO SCH ×2 (08:16→20:37)
[2016-12-31] MEDS: SOLU-MEDROL IV SCH (08:16)
[2016-12-31] MEDS: MIRALAX PO SCH (09:01)
[2016-12-31] MEDS: SYMBICORT 160/4.5 MICROGM INHALER INH SCH ×2 (09:06→21:20)
[2016-12-31] MEDS: LOVENOX SUBQ SCH (09:22)
[2016-12-31] MEDS ORDERED: LASIX IV ONE (09:49)
[2016-12-31 10:17] LABS: URINE CULTURE NEEDED? NO; URINE MICRO REVIEW NEEDED? NO; URINE SOURCE CATH
[2016-12-31 10:34] LABS: BILIRUBIN URINE NEGATIVE (NEGATIVE); BLOOD URINE NEGATIVE (NEGATIVE); COLOR YELLOW; GLUCOSE URINE NEGATIVE (NEGATIVE); LEUKOCYTES URINE NEGATIVE (NEGATIVE); NITRITE URINE NEGATIVE (NEGATIVE); PH URINE 5.5; PROTEIN URINE TRACE mg/dL (NEGATIVE); SP GRAVITY URINE 1.017; TURBIDITY URINE CLEAR (CLEAR); UROBILINOGEN URINE NORMAL (NORMAL)
[2016-12-31 10:36] LABS: UR EPITHELIAL CELLS <10 /HPF (<10); URINE BACTERIA NEGATIVE /HPF; URINE RBC <10 /HPF (<10); URINE WBC <10 /HPF (<10)
--- NOTE | 2016-12-31 12:44 | CONSULTATION ---
DATE OF CONSULTATION: 12/31/2016 REASON FOR CONSULTATION: Pancreatic mass with elevated CA 19-9. REQUESTING PHYSICIAN: Consultation requested by Dr. Scott. HISTORY OF PRESENT ILLNESS: Mr. Marrero is a 71-year-old male who was readmitted recently with right-sided pneumonia to [facility]. During his workup, which included a CT angiogram, it was discovered that the patient had a cystic pancreatic mass. CA 19-9 was checked and is elevated. We have been consulted to help with further workup. Patient is also currently now status post bronchoscopy, which was believed to be pneumonic process. Those biopsies are currently pending. Patient also was found to have hypogammaglobulinemia and is currently status post IVIG. PAST MEDICAL HISTORY: 1. Recurrent pneumonia. 2. Chronic obstructive pulmonary disease. 3. Hypertension. 4. Hypothyroidism. PAST SURGICAL HISTORY: Status post hernia repair. SOCIAL HISTORY: Patient is a former smoker and quit about one year ago. He denies any current use of alcohol, illicit drugs, or tobacco. FAMILY HISTORY: Negative. REVIEW OF SYSTEMS: As per the HPI. All else is either negative or noncontributory. PHYSICAL EXAMINATION: Vital signs: Temperature 97.7, heart rate 121, respirations 21, blood pressure 109/60, O2 saturation 92% on nonrebreather. General: This is an elderly male sitting in the hospital bed in the ICU. There is no family by bedside. He is overall in no acute distress. Head: Normocephalic, atraumatic. Eyes: Pupils equal, round, and reactive. Ears, nose, throat, neck, and mouth: Oral mucosa appears to be normal. Trachea is midline. Gross auditory acuity is intact. Cardiovascular: Tachycardia but regular rhythm. No murmurs, gallops, or rubs appreciated. Respiratory: Coarse breath sounds bilaterally. Normal respiratory effort. Gastrointestinal: Abdomen is soft and nondistended. Positive bowel sounds. Musculoskeletal: No obvious abnormalities noted. Extremities: Patient has no swelling or edema. Neurologic: Patient is alert. He is oriented. No focal motor deficits noted. LABS AND STUDIES: White blood cells 11.09, hemoglobin 12.4,hematocrit 36.8, platelet count 163, sodium 141, potassium 3.8, chloride 102, CO2 25, BUN 24, creatinine 1.2, glucose 124. CT angiography shows a cystic pancreatic mass, likely inflammatory. No pulmonary emboli. CA 19-9 is 362, CEA of 12.7. ASSESSMENT AND PLAN: 1. Cystic pancreatic mass. Patient does have an elevated CA 19-9. It is only mildly elevated. Will go ahead and have the patient follow up with the three-phase pancreatic dedicated CT scan and in about one month after the patient's acute issues have resolved. 2. Pneumonia. He is status post bronchoscopy with biopsies. Followup on those. Further management will continued to be per Pulmonary and Infectious Disease. 3. Hypothyroidism. Continue current management. 4. Hypogammaglobulinemia. Patient is status post IVIG as per Dr. Gutierrez. Continue management per Dr. Gutierrez. We want to thank you for allowing us to participate in Mr. Marrero's care while he is at [facility]. We will continue to follow along and adjust the treatment plan per his hospital course. Dictated by BILL Isaac for Ro Hernandez MD cc: Ro Hernandez MD
--- NOTE | 2016-12-31 13:31 | PROGRESS NOTE ---
DATE: 12/31/2016 SUBJECTIVE: Today Mr. Marrero refers to be doing a little better but continues to have some shortness of breath. OBJECTIVE: Vital signs: Blood pressure is 122/81, pulse of 112. Respiration is 21. Temperature is 98.1. General exam: Mr. Marrero is a 71-year-old male. He was in bed. He looked a little bit tachypneic. Mucosa is pink and moist. Anicteric and acyanotic. Neck: Supple. Chest: Air entry is bilaterally reduced, more so to the right posterior lung field. He seems to have prolonged expiration phase of respiration, and there are some bibasilar crepitations. Cardiovascular: Regular rate and rhythm. Abdomen: Soft. Extremities: No pedal edema. Central nervous system: Patient is alert and oriented. LABORATORY DATA: WBC is 11.09. Hemoglobin is 12.4. Platelet count is 163. Chemistry has been reviewed, completely normal. ASSESSMENT: 1. Right lower lobe massive consolidation suspicious for pneumonic process. Cultures so far have been growing gram-negative cocci, which I think is probably a staphylococcus. We are waiting on the ID. Patient will continue with the antibiotics as per recommendations from Dr. Gutierrez. Patient also had a bronchoscopy, so we will be pending the cultures and also the cytology. 2. Cystic pancreatic mass with elevated CA 19-9. Patient is pending evaluation from Hematology/Oncology and Gastroenterology. 3. Hypothyroidism. 4. Acute kidney injury. It is improving. 5. Hypogammaglobulinemia. Patient got a dose of intravenous immunoglobulin. Repeat levels of IgG have been ordered. We are waiting on that. cc: Garrett Scott MD
[2016-12-31] MEDS: VANCOMYCIN 1,700 MG in NS 250 ML IV SCH (15:24)
--- NOTE | 2016-12-31 17:37 | PROGRESS NOTE ---
DATE: 12/31/2016 PRESENT ILLNESS: The patient has a pneumonia which on patient's last x-ray was improving. The patient also has a low IgG level. MEDICATIONS: The patient is receiving a combination of vancomycin and cefepime. This is day 4 of treatment with both of these antibiotics. PHYSICAL EXAMINATION: Vital Signs: Temperature is 97.6 degrees, pulse 105, respirations 16, blood pressure 148/94. Generally: This is a chronically ill-appearing and confused elderly male who is in no acute distress. Head, eyes, ears, nose, and throat: He can hear my spoken words and see near objects. Lungs: Clear to auscultation. Cardiovascular: Irregular heart rate. Abdomen: Soft and nontender. LAB AND X-RAY: The patient's CBC today showed a white count of 11,090, hemoglobin 12.4, and platelet count 163,000. Blood gases show a pH of 7.39, a PO2 of 66, and a pCO2 of 46. Creatinine is 1.2. GFR is 59. All of the patient's bronchial washings are growing gram-positive cocci. Dr. Norris confirmed that the biopsy he took showed lung cancer. There is no x-ray today of the lungs. ASSESSMENT AND PLAN: I plan to continue with the patient's 2 antibiotics, namely cefepime and vancomycin. The patient has severe pneumonia. COMORBIDITIES: Include the patient has severe COPD, he smokes cigarettes and he has an immunoglobulin deficiency. cc: Aubrey Gutierrez MD
[2016-12-31] MEDS: HYTRIN PO SCH (20:35)
[2016-12-31] MEDS: ADALAT CC PO SCH (20:37)
[2016-12-31] MEDS: DESYREL PO SCH (20:37)
[2016-12-31] MEDS: ULTRAM PO PRN (21:09)
[2017-01-01] MEDS: XOPENEX NEB INH SCH ×4 (03:40→21:23)
[2017-01-01] MEDS: ATROVENT NEB INH SCH ×4 (03:40→21:23)
[2017-01-01 06:25] LABS: MANUAL DIFF NEEDED? NO
[2017-01-01] MEDS: PRILOSEC PO SCH (06:32)
[2017-01-01] MEDS: SYNTHROID PO SCH (06:32)
[2017-01-01] MEDS: APRESOLINE PO SCH ×3 (06:32→21:29)
[2017-01-01 06:40] LABS: BASO% 0.1 % (0.0-0.8); EOS# 0.06 X1000 (0.0-0.7); EOS% 0.8 % (0.0-10.0); HEMATOCRIT 33.6 % (42.0-52.0); HEMOGLOBIN 11.1 g/dL (14.0-18.0); IMM GRAN# 0.02 X1000 (0.0-0.04); IMM GRAN% 0.3 % (0.0-0.5); LYMPH# 1.08 X1000 (1.2-3.4); MCV 90.8 FL (81-99); MONO# 0.69 X1000 (0.11-0.59); MONO% 9.6 % (1.7-9.3); NEUT% 74.2 % (42.2-75.2); PLT 152 X1000 (130-400)
[2017-01-01 06:55] LABS: CALCIUM 8.5 mg/dL (8.8-10.2); POTASSIUM 3.4 mmol/L (3.5-5.1)
[2017-01-01] MEDS: MAXIPIME 2 GM/NS 2 GM/100 ML IVPB IV SCH ×2 (08:59→19:24)
[2017-01-01] MEDS: SOLU-MEDROL IV SCH (08:59)
[2017-01-01] MEDS: XANAX PO SCH ×2 (09:00→20:31)
[2017-01-01] MEDS: MIRALAX PO SCH ×2 (09:00→20:32)
[2017-01-01] MEDS: LOVENOX SUBQ SCH (09:00)
[2017-01-01] MEDS ORDERED: KLOR-CON PO ONE (10:01)
[2017-01-01] MEDS: SYMBICORT 160/4.5 MICROGM INHALER INH SCH ×2 (11:35→21:23)
[2017-01-01] MEDS: APRESOLINE IV PRN (15:05)
[2017-01-01] MEDS: VANCOMYCIN 1,700 MG in NS 250 ML IV SCH (15:13)
[2017-01-01] MEDS: ATIVAN IV PRN ×2 (15:14→20:32)
--- NOTE | 2017-01-01 16:43 | PROGRESS NOTE ---
DATE: 01/01/2017 SUBJECTIVE: Today Mr. Marrero was sitting up in the chair. I saw him very early in the morning at about 9 a.m. Denies to have any acute problems. Per the nursing staff, the night was uneventful. OBJECTIVE: Vital Signs: Blood pressure is 128/77, pulse of 117, respiration is 19, temperature is 97.4 degrees. General: Mr. Marrero is a 71-year-old male. He was sitting up in a chair. Mild respiratory distress. HEENT: Mucosa is pink and moist. Anicteric. Acyanotic. Neck: Supple. Chest: Air entry is bilaterally reduced. There is a diffuse faint end-expiratory wheezing and some coarse crepitations in the posterior lung [place]. Cardiovascular: Tachycardic but regular rate. No murmurs, no rubs. Abdomen: Soft, nontender. Extremities : No pedal edema. CONTACT CENTER REPRESENTATIVE: Patient was alert and oriented x4. There was no focal neurological deficit. LABORATORY DATA: WBC is 7.27, hemoglobin is 11.1, platelet count of 152,000. Chemistries reviewed. Creatinine went up to 1.3. Patient was given a dose of Lasix yesterday. ASSESSMENT: 1. Right lower lobe massive consolidation suspicious for pneumonic process. So far, the sputum and the alveolar lavage and bronchoscopy has shown MRSA and we think this is an MRSA pneumonia. 2. 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 We are still pending the official report. This was transmitted to me yesterday by the pathologist as well as the Pulmonary Medicine specialist. 3. 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 Hematology and Oncology are on board. They prefer to pursue this once patient's lung issues have been taken care of. 4. Hypothyroidism. We will continue with supplements. 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 6. Acute kidney injury. I think this is from diuretic effect. We will keep an eye on that. I think in general Mr. Marrero will need palliative care. I will therefore go ahead and consult them. 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 cc: Garrett Scott MD [facility]
--- NOTE | 2017-01-01 17:54 | PROGRESS NOTE ---
DATE: 01/01/2017 PRESENT ILLNESS: The patient has a methicillin-resistant Staph aureus pneumonia. He also has a low IgG level. MEDICATIONS: The patient is receiving vancomycin and cefepime. This is the 5th day of treatment with these agents. PHYSICAL EXAMINATION: Vital Signs: Temperature is 97.4 degrees, pulse 131, respirations 28, blood pressure 128/77. General: This is an ill-appearing, elderly male. He is in no acute distress. Ear/nose/throat: No white patches were noted in the mouth. Lungs: Clear to auscultation. Cardiovascular: Regular heart rate. Abdomen: Soft and nontender. Neurologic: Patient is alert. He is talking. He can move his extremities. LAB AND X-RAY STUDIES: CBC today shows a white count of 7.22, hemoglobin 11.1, and platelet count 152,000. Creatinine is 1.3. GFR is 54. There is no new chest x-ray today. ASSESSMENT AND PLAN: Patient has methicillin-resistant Staph aureus pneumonia. I am going to continue vancomycin but discontinue cefepime. COMORBIDITIES: The patient has COPD. He has recently been diagnosed with lung cancer. He also continues to smoke cigarettes. There is an immunoglobulin deficiency. cc: Aubrey Gutierrez MD
[2017-01-01] MEDS: ADALAT CC PO SCH (20:31)
[2017-01-01] MEDS: DESYREL PO SCH (20:31)
[2017-01-01] MEDS: HYTRIN PO SCH (20:33)
[2017-01-01] MEDS: MORPHINE IV PRN (21:31)
[2017-01-01] MEDS ORDERED: MORPHINE IV ONE (21:56)
[2017-01-02] MEDS: ATIVAN IV PRN ×3 (03:51→16:36)
[2017-01-02] MEDS: MORPHINE IV PRN (03:52)
[2017-01-02] MEDS: XOPENEX NEB INH SCH ×4 (04:00→21:15)
[2017-01-02] MEDS: ATROVENT NEB INH SCH ×4 (04:00→21:15)
[2017-01-02 05:56] LABS: MANUAL DIFF NEEDED? NO
[2017-01-02 06:01] LABS: BASO% 0.1 % (0.0-0.8); EOS# 0.02 X1000 (0.0-0.7); EOS% 0.2 % (0.0-10.0); HEMATOCRIT 33.1 % (42.0-52.0); HEMOGLOBIN 10.9 g/dL (14.0-18.0); IMM GRAN# 0.03 X1000 (0.0-0.04); IMM GRAN% 0.3 % (0.0-0.5); LYMPH# 1.15 X1000 (1.2-3.4); LYMPH% 12.9 % (20.5-51.1); MCH 30.1 PG (27-31); MCHC 32.9 g/dL (33-37); MCV 91.4 FL (81-99); MONO# 0.65 X1000 (0.11-0.59); MONO% 7.3 % (1.7-9.3); MPV 11.1 FL (7.4-10.4); NEUT% 79.2 % (42.2-75.2); PLT 167 X1000 (130-400); RBC 3.62 XMIL (4.7-6.1)
[2017-01-02] MEDS: APRESOLINE PO SCH ×3 (06:17→22:32)
[2017-01-02] MEDS: SYNTHROID PO SCH (06:17)
[2017-01-02] MEDS: PRILOSEC PO SCH (06:17)
[2017-01-02 06:24] LABS: CALCIUM 8.6 mg/dL (8.8-10.2); POTASSIUM 3.7 mmol/L (3.5-5.1)
[2017-01-02] MEDS ORDERED: MORPHINE IV ONE (06:45)
--- NOTE | 2017-01-02 07:02 | PROGRESS NOTE ---
DATE: 01/01/2017 SUBJECTIVE: Patient currently sitting at the side of the bed. He is trying to have a bowel movement. He feels a little constipated. He was noted to have a pancreatic cystic lesion on imaging. His CA-19-9 is 362. I spoke to Dr. Norris who did a bronchoscopy recently and the bronchoscopy studies have so far show MRSA but the pathology study preliminary was suggestive of bronchoalveolar carcinoma. The final report is currently pending. OBJECTIVE: Vital signs: Temperature 98.6, pulse rate 115, respiratory rate 19, blood pressure 117/71, saturating 94% on 6 L nasal cannula. General appearance: Thinly built, sitting beside the bed. HEENT: Pale conjunctivae. No icterus. Abdomen: Could not be examined as the patient was trying to use the bedside commode. Neurologic: He was alert and awake and answered all of the questions. LABS: Hemoglobin and hematocrit are 11.1 and 33.6, white count of 7.2, platelet count of 152, MCV of 90.8. Sodium 140, potassium 3.4, chloride 105, bicarb 28, anion gap 11, BUN of 20, creatinine 1.3, glucose of 91, calcium is 8.5. INR 1.06. CEA was 4.7. CA-19-9 362. IMPRESSION AND PLAN: 1. Methicillin-resistant Staphylococcus aureus pneumonia, on antibiotics. 2. 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 Final report awaited. Dr. Norris on board. 3. Pancreatic cystic lesion, high CA-19-9. The patient is not a good surgical candidate but further investigation can be then the EUS based on his overall health condition. 4. Constipation. We will start on MiraLAX 17 g twice daily. 5. Gastrointestinal prophylaxis. Protonix once daily with PPI once daily. 6. Above plan discussed with the patient and the nurse and Dr. Norris. cc: MD Garrett Carrillo MD Heather Shah, MD Leroy F. Harris, MD Manish Arora, MD
--- NOTE | 2017-01-02 07:32 | Diag Imaging Result Document ---
PROCEDURE NAME: CHEST-PORTABLE - 01/02/2017 AP PORTABLE CHEST AT 0500 HOURS: FINDINGS: There continues to be alveolar opacity throughout much of the right lung. There is minimal opacification of the left base. Compared to the previous study of 12/31/2016 there is slight improvement with regard to the right middle and lower lobes. IMPRESSION: Right-sided pneumonia slightly improved since 12/31/2016.
[2017-01-02] MEDS: SOLU-MEDROL IV SCH (08:23)
[2017-01-02] MEDS: XANAX PO SCH ×2 (08:23→21:14)
[2017-01-02] MEDS: MAXIPIME 2 GM/NS 2 GM/100 ML IVPB IV SCH ×2 (08:28→19:32)
[2017-01-02] MEDS: MIRALAX PO SCH ×2 (08:31→21:14)
[2017-01-02] MEDS: LOVENOX SUBQ SCH (08:31)
[2017-01-02] MEDS: SYMBICORT 160/4.5 MICROGM INHALER INH SCH ×2 (09:33→21:15)
--- NOTE | 2017-01-02 12:06 | PROGRESS NOTE ---
DATE: 01/02/2017 SUBJECTIVE: Today, Mr. Marrero refers to be doing fine. Still continues to have some baseline cough and some shortness of breath. OBJECTIVE: Vital signs: Blood pressure is 108/59, pulse 115, respirations 19, temperature 98.4 degrees. Patient was saturating 94% on non-rebreather. General: Mr. Marrero is a 71-year-old male. He was in bed,sitting up in bed, does not seems to be in any distress. HEENT: Mucosa is pink and moist. Anicteric. Acyanotic. Neck: Supple. Chest: Air entry is bilaterally reduced, more so to the right. There is some dullness to percussion on the right and some bibasilar crepitations. Cardiovascular: Tachycardic, but regular rate. No murmurs. No rubs. No gallops. Abdomen: Soft, nontender. Extremities: No pedal edema. Central Nervous System: Patient is alert and oriented x4. There is no focal neurological deficit. LABORATORY DATA: WBC is 8.84, hemoglobin is 10.9, platelet count of 167,000. Chemistry is reviewed and is completely unremarkable except BUN of 32 and creatinine of 1.3. IMAGING: A chest x-ray this morning shows right-sided pneumonia, slightly improved since admission. ASSESSMENT: 1. Right lower lobe massive consolidation suspicious for pneumonia, with sputum and bronchoalveolar lavage samples showing Methicillin-resistant Staphylococcus aureus. Patient is currently on vancomycin and seems to be doing fine. 2. 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 We are still pending the official report from Pathology. Heme/Onc is on board. 3. Cystic pancreatic mass with elevated CA19-9. Concern for pancreatic cancer. The patient is being followed up by Heme/Onc. 4. Hypothyroidism. Will continue with the supplement. 5. Immunoglobulin deficiencies noted. Patient was given a dose of immunoglobulin initially. 6. Acute kidney injury, likely from diuretic use. We will continue to observe this. We will withhold diuretics for now and also avoid any nephrotoxic drugs. In general, I think Mr. Marrero is relatively stable. We will going to continue with the current IV antibiotics. Will be pending the official report on the pathology and then we will go from there. PLAN: To continue observing Mr. Marrero in the ICU at least for another 24 hours and hopefully move him out tomorrow. cc: Garrett Scott MD
[2017-01-02] MEDS: APRESOLINE IV PRN (13:53)
--- NOTE | 2017-01-02 17:45 | PROGRESS NOTE ---
DATE: 01/02/2017 PRESENT ILLNESS: The patient has a methicillin-resistant Staph aureus pneumonia. He had a low IgG level, but a repeat level today is 731. The IgA level is also normal at 176. MEDICATIONS: The patient is on a combination of cefepime and vancomycin. This is the 6th day of treatment with both of these agents. PHYSICAL EXAMINATION: Vital Signs: Temperature is 97.6, pulse 110, respirations 25, blood pressure 115/35. General: This is an ill-appearing, elderly male. He is in no acute distress. Neurologic: He seemed to be a little bit confused and having some shaking episodes. Lungs: Clear to auscultation. Cardiovascular: Regular heart rate. Abdomen: Soft and nontender. Chest: Has an increased AP diameter. LAB AND X-RAY: Chest x-ray shows improvement in the right-sided pneumonia. His creatinine is 1.3. The GFR is 54. CBC shows a white count of 8890, hemoglobin 10.9, and platelet count 167,000. ASSESSMENT AND PLAN: The patient has methicillin-resistant Staph aureus pneumonia. I plan to continue vancomycin. Cefepime was discontinued yesterday. COMORBIDITIES: Include COPD, lung cancer and cigarette smoking. cc: Aubrey Gutierrez MD
[2017-01-02] MEDS ORDERED: LASIX IV ONE (17:59)
--- NOTE | 2017-01-02 19:58 | PALLIATIVE CARE CONSULTATION ---
DATE: 01/02/2017 REQUESTING PHYSICIAN: Garrett Scott MD. REASON FOR CONSULTATION: Goals of care. HISTORY OF PRESENT ILLNESS: This is a 71-year-old, male with a past medical history of COPD, recurrent pneumonia, hypertension and hypothyroidism. He was most recently admitted on 12/20/2016 after presenting to the [facility] ED with complaints of progressive shortness of breath. It is of note that he was admitted to the [facility] from 12/13/2016 to 12/15/2016 and treated for a diagnosis of bilateral pneumonia. Mr. Marrero required transfer to the [facility] 7 days after admission due to continued decline in his respiratory status. Pulmonary was consulted and Mr. Marrero underwent a bronchoscopy on 12/30/2016. Sputum and bronchoalveolar lavage samples revealed MRSA. Transbronchial biopsies of the right lower lobe are currently pending, however, preliminary report reveals bronchoalveolar adenocarcinoma. Oncology has been consulted and plans to follow up on an outpatient basis once his acute issues resolve to discuss further treatment options. It is also of note that CTA of the lungs revealed a cystic pancreatic tail mass which is also being followed on an outpatient basis per Oncology. Currently Mr. Marrero is in the ICU. He is lying in the hospital bed. He complains of shortness of breath and anxiety. He denies pain. He states that he has had roughly a 30-pound weight loss over the last year. His sister is at the bedside. The Palliative Care team has been consulted to assist with goals of care. REVIEW OF SYSTEMS: A 12 point review of systems has been conducted and otherwise negative except those mentioned in the HPI. PAST MEDICAL HISTORY: 1. COPD. 2. Recurrent pneumonia. 3. Hypertension. 4. Hypothyroidism. PAST SURGICAL HISTORY: Hernia repair. SOCIAL HISTORY: Past tobacco and alcohol use. Drug use denied. He is and has 2 adult children who live in [place]. FAMILY HISTORY: None pertinent. PHYSICAL EXAMINATION: General: This is a 71-year-old, chronically ill-appearing, male, who does not appear to be in any acute distress. HEENT: Atraumatic, normocephalic. Neck: Trachea is midline. Cardiovascular: Increased rate. Regular rhythm. Pulmonary: Lung sounds are diminished. Respirations are slightly labored. Abdomen: Soft. Bowel sounds are active. Extremities: Pulses are palpable. No edema noted. Neurologic: Alert and oriented to person, place and time. IMPRESSION: This is a 71-year-old, male with a past medical history as listed above in the HPI. Mr. Marrero is able to recall the new findings of his lung cancer and mass to his pancreas. He understands that those will be further discussed with Oncology after his pneumonia resolves. He states that his plan at discharge is to relocate to [place] to be closer to his family. We discussed advanced directives and power of attorney lawyer. He does not have either document. He states that he is unsure of what his wishes would be. More information was given per his request. He currently complains of anxiety and dyspnea, and is requesting medication for anxiety. He has Ativan 1 mg ordered every 4 hours. He states this has been effective when given. It appears that Mr. Marrero' palliative performance scale is 50%. Mr. Marrero is a full code. The Palliative Care team will continue to follow. Dictated by JIN John for Alfred Norris MD cc: JIN John MD
[2017-01-02] MEDS: ULTRAM PO PRN (21:14)
[2017-01-02] MEDS: ADALAT CC PO SCH (21:14)
[2017-01-02] MEDS: DESYREL PO SCH (21:15)
[2017-01-02] MEDS: HYTRIN PO SCH (21:16)
[2017-01-03] MEDS: MORPHINE IV PRN ×4 (02:46→22:41)
[2017-01-03] MEDS: VANCOMYCIN 1,700 MG in NS 250 ML IV SCH (03:06)
[2017-01-03] MEDS: ATIVAN IV PRN ×2 (03:15→18:16)
[2017-01-03] MEDS: ATROVENT NEB INH SCH ×4 (03:55→21:06)
[2017-01-03] MEDS: XOPENEX NEB INH SCH ×4 (03:55→21:06)
[2017-01-03 05:55] LABS: MANUAL DIFF NEEDED? NO
[2017-01-03 05:57] LABS: BASO% 0.1 % (0.0-0.8); EOS# 0.06 X1000 (0.0-0.7); EOS% 0.6 % (0.0-10.0); HEMATOCRIT 33.5 % (42.0-52.0); IMM GRAN# 0.04 X1000 (0.0-0.04); IMM GRAN% 0.4 % (0.0-0.5); LYMPH# 1.07 X1000 (1.2-3.4); LYMPH% 10.2 % (20.5-51.1); MCH 30.3 PG (27-31); MCHC 32.8 g/dL (33-37); MCV 92.3 FL (81-99); MONO# 0.69 X1000 (0.11-0.59); MONO% 6.6 % (1.7-9.3); MPV 11.1 FL (7.4-10.4); NEUT% 82.1 % (42.2-75.2); PLT 153 X1000 (130-400); RBC 3.63 XMIL (4.7-6.1)
[2017-01-03] MEDS: SYNTHROID PO SCH (06:04)
[2017-01-03] MEDS: APRESOLINE PO SCH ×3 (06:04→21:27)
[2017-01-03] MEDS: PRILOSEC PO SCH (06:04)
[2017-01-03 06:23] LABS: CALCIUM 8.7 mg/dL (8.8-10.2); POTASSIUM 3.7 mmol/L (3.5-5.1)
[2017-01-03] MEDS: MIRALAX PO SCH ×2 (08:06→21:26)
[2017-01-03] MEDS: XANAX PO SCH ×2 (08:06→21:26)
[2017-01-03] MEDS: SOLU-MEDROL IV SCH (08:06)
[2017-01-03] MEDS: MAXIPIME 2 GM/NS 2 GM/100 ML IVPB IV SCH (08:06)
[2017-01-03] MEDS: LOVENOX SUBQ SCH (08:06)
[2017-01-03] MEDS: SYMBICORT 160/4.5 MICROGM INHALER INH SCH ×2 (09:44→21:07)
--- NOTE | 2017-01-03 14:04 | CONSULTATION ---
DATE OF CONSULTATION: 01/03/2017 REASON FOR CONSULTATION: Pancreatic mass and elevated CA19-9. HISTORY OF PRESENT ILLNESS: Mr. Marrero is a 71-year-old gentleman with long history of COPD, currently admitted with right-sided pneumonia, CT angiogram showed cystic mass in the pancreatic head, and CA19-9 is elevated. We were asked to evaluate for possible pancreatic neoplasm. Patient just had a bronchoscopy and there appears to be endobronchial lesion. This could be post obstructive pneumonia. The patient also had hypogammaglobulinemia and he was given IV immunoglobulins. PAST MEDICAL HISTORY: 1. Pneumoniae. 2. Chronic obstructive pulmonary disease. 3. Hypertension. 4. Hypothyroidism. PAST SURGICAL HISTORY: Hernia repair. SOCIAL: Is a former smoker, quit about 1 year ago. Does not drink or use any drugs. FAMILY HISTORY: Negative. REVIEW OF SYSTEMS: As above. All other systems are negative. PHYSICAL EXAMINATION: General: This is a pleasant gentleman. Vital Signs: Temperature of 97.7 degrees, heart rate 120, respiratory rate 21, blood pressure 109/60, and O2 saturation 92% on a nonrebreather. General: An elderly male sitting in the ICU bed. He is slightly short of breath. HEENT: Conjunctival pallor present. No scleral icterus. Neck: Supple. Trachea is in the midline. Heart: Normal 1st and 2nd heart sounds. Lungs: Decreased breath sounds on the right side. Abdomen: Soft, nondistended, nontender. Positive bowel sounds. Musculoskeletal: Negative. Extremities: No swelling or edema. Neurological: Alert and oriented. No focal motor deficits. LABORATORY: White count 11,000, hemoglobin 12, hematocrit 36.8, platelets 163,000. BUN 24, creatinine 1.2. CA19-9 is 362. CEA 12.9. DIAGNOSTIC TESTS: CT angiogram shows pancreatic mass, cystic, most likely inflammatory. ASSESSMENT AND PLAN: 1. Cystic pancreatic mass. It appears to be more inflammatory; however, CA19-9 is grossly elevated, which can also proceed into bronchoalveolar carcinoma. We will work this up with 3- phase pancreatic CT after he gets over his pneumonia as well as the diagnosis based on bronchoscopy. 2. Pneumonia. Will follow the biopsies. 3. Hypothyroidism. 4. Hypogammaglobulinemia. Dr. Gutierrez is following. We will not start any workup at this point, until his pneumonia is better and until the biopsy results are available. He is not a surgical candidate, but this could be either endoscopic ultrasound or fine needle aspiration biopsy, which can be done at a later date. cc: Amee Up MD
--- NOTE | 2017-01-03 14:05 | PROGRESS NOTE ---
DATE: 01/03/2017 Today, Mr. Marrero referred to be doing a little better. He continues to have some residual shortness of breath. He was actually in bed. He was needing non-rebreather to maintain adequate saturation. GENERAL EXAM: His vitals, blood pressure is 122/75, pulse is 94, respirations 24, temperature is 97.8 degrees.General: Mr. Marrero is a 71-year-old male. He was in bed. Did not seems to be in any cardiopulmonary distress. HEENT: Mucosa is pink and moist. Anicteric. Acyanotic. Neck: Neck is supple. Chest: Air entry is bilaterally reduced, more so to the right. There is some faint wheezes in and there is prolongation of end expiratory phase of respiration. Cardiovascular: Regular rate and rhythm. There is no murmurs, no rubs. Abdomen: Soft, nontender. Extremities: No pedal edema. INDUSTRIAL CONTROLLER: Patient is alert and oriented x4. No focal neurological deficit. LABORATORY DATA: WBC is 10.51, hemoglobin is 11.4, platelet count of 153,000. Chemistries reviewed. Electrolytes are fine. Creatinine is 1.4. BUN is 37. No chest x-ray for this morning. CURRENT MEDICATIONS INCLUDE: 1. Xanax p.r.n. 2. Cefepime 2 g q.12. Today is day 7 on that. 3. Lovenox 40 subcutaneous. 4. Hydralazine p.r.n. 5. Hydralazine 25 p.o. q.8. 6. Ipratropium and Xopenex. 7. Levothyroxine 112 daily. 8. Methylprednisolone 40 IV daily. 9. Vancomycin. 10. Adalat. 11. Terazosin. 12. Lasix 80 mg was given yesterday, 1 time dose. ASSESSMENT: 1. Right lower lobe MRSA pneumonia. 2. Right bronchoalveolar carcinoma. 3. 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 Heme/Onc aware. 4. Hypothyroidism. Patient will continue with supplements. 5. Immunoglobulin deficiency noted. The patient was given a dose of immunoglobulin. Levels have been normalized. 6. Acute kidney injury. Likely from diuretic use. Another dose of diuretic was given to the patient yesterday. Creatinine got slightly worsened. We will hold off on any diuretics and we would ensure that all medications are renally dosed and avoid any nephrotoxic. So in general, I think Mr. Marrero is relatively stable but critical. Still needing a lot of oxygen to maintain adequate saturation. I think his progress will be slow from the infectious standpoint. We will continue with the current IV antibiotics and await further recommendations from ID. The patient also has bronchoalveolar carcinoma as per the pathology report. We do not know how much of the consolidation we looking at is from infection and how much is actually the cancer. I think once patient has completed therapy for the infection then we will be able to know how much of it is from the cancer. We will plan to repeat his chest x-ray on Friday to see where we are. We will keep the patient in the ICU for the time being since he continues to be demanding very high liters of oxygen. cc: Garrett Scott MD
--- NOTE | 2017-01-03 16:59 | PROGRESS NOTE ---
DATE: 01/03/2017 PRESENT ILLNESS: The patient has methicillin-resistant Staphylococcus aureus pneumonia. He does not have at this time an immunoglobulin deficiency. MEDICATIONS: He is on day 7 of treatment with both cefepime and vancomycin. PHYSICAL EXAMINATION: Vital Signs: Temperature is 97.6 degrees, pulse 106, respirations 19, blood pressure 120/76. General: This is a somewhat ill-appearing, elderly male. He is in no acute distress. Head, eyes, ears, nose, throat: He can hear my spoken words. He can see near objects. There are no white patches in his mouth. Thorax: He has an increased AP diameter of the chest. Lungs: Clear to auscultation. Cardiovascular: Regular heart rate. Abdomen: Soft and nontender. LAB AND X-RAY: There is no new x-ray. The patient's CBC shows a white count of 10,510, hemoglobin 11 and platelet count 153,000, creatinine is 1.4. The GFR is 50. Fungal prep showed budding yeast. ASSESSMENT AND PLAN: The patient has pneumonia. My plan is to continue vancomycin and discontinue cefepime. COMORBIDITIES: COPD, lung cancer and cigarette smoking. cc: Aubrey Gutierrez MD
--- NOTE | 2017-01-03 17:21 | PALLIATIVE CARE PROGRESS NOTE ---
DATE: 01/03/2017 SUBJECTIVE: I met with Mr. Marrero this morning around 8:30 a.m. He states that he did not sleep well. He continues to complain of shortness of breath. He also complains of anxiety. OBJECTIVE: General: This is a 71-year-old, male who does not appear to be in any distress. Cardiovascular: Increased rate. Regular rhythm. Pulmonary: Lung sounds are diminished. Respirations are slightly labored with conversation. Abdomen: Soft. Bowel sounds are active. Extremities: Pulses are palpable. Neurologic: Awake, alert. Oriented to person, place and time. ASSESSMENT AND PLAN: I made a follow up visit with Mr. Marrero to answer any questions for his advanced directive and power of real estate attorney. He did not have any questions at this time. Mr. Marrero remains a full code. The palliative care team will continue to follow. Dictated by JIN John for Alfred Norris MD cc: JIN John MD
[2017-01-03] MEDS: DESYREL PO SCH (21:27)
[2017-01-03] MEDS: ULTRAM PO PRN (21:27)
[2017-01-03] MEDS: ADALAT CC PO SCH (21:27)
[2017-01-03] MEDS: HYTRIN PO SCH (21:28)
[2017-01-04] MEDS: XOPENEX NEB INH SCH ×4 (03:36→21:23)
[2017-01-04] MEDS: ATROVENT NEB INH SCH ×4 (03:36→21:23)
[2017-01-04] MEDS: ATIVAN IV PRN ×2 (03:53→17:31)
[2017-01-04 04:55] LABS: ALLEN TEST YES; BE 10.7 mmoll (-3.0-3.0); BLOOD TYPE ARTERIAL; DRAW SITE R RADIAL; METHB 1.8 % (0.0-1.5); O2(CT) 14.7 mL/dL (15.0-23.0); PCO2(98.6) 40 mmHg (35-45); PO2(98.6) 118 mmHg (60-100); SAMPLE BLOOD; SAO2 99.7 % (95.0-100.0); THB 10.7 g/dL (11.5-17.4); pH(98.6) 7.54 (7.35-7.45)
[2017-01-04 04:56] LABS: MODALITY VENTIMASK
[2017-01-04 05:41] LABS: MANUAL DIFF NEEDED? NO
[2017-01-04 05:46] LABS: BASO% 0.1 % (0.0-0.8); EOS# 0.07 X1000 (0.0-0.7); EOS% 0.8 % (0.0-10.0); HEMATOCRIT 31.5 % (42.0-52.0); HEMOGLOBIN 10.3 g/dL (14.0-18.0); IMM GRAN# 0.02 X1000 (0.0-0.04); IMM GRAN% 0.2 % (0.0-0.5); LYMPH# 1.23 X1000 (1.2-3.4); MCH 30.1 PG (27-31); MCHC 32.7 g/dL (33-37); MCV 92.1 FL (81-99); MONO# 0.55 X1000 (0.11-0.59); MONO% 6.3 % (1.7-9.3); MPV 11.4 FL (7.4-10.4); NEUT% 78.6 % (42.2-75.2); PLT 138 X1000 (130-400); RBC 3.42 XMIL (4.7-6.1)
[2017-01-04 06:11] LABS: CALCIUM 8.5 mg/dL (8.8-10.2); POTASSIUM 3.7 mmol/L (3.5-5.1)
[2017-01-04] MEDS: SYNTHROID PO SCH (06:18)
[2017-01-04] MEDS: PRILOSEC PO SCH (06:18)
[2017-01-04] MEDS: APRESOLINE PO SCH ×4 (06:20→21:33)
[2017-01-04] MEDS: LOVENOX SUBQ SCH (09:05)
[2017-01-04] MEDS: XANAX PO SCH ×2 (09:05→21:19)
[2017-01-04] MEDS: SOLU-MEDROL IV SCH (09:05)
[2017-01-04] MEDS: MIRALAX PO SCH ×2 (09:07→21:19)
[2017-01-04] MEDS: SYMBICORT 160/4.5 MICROGM INHALER INH SCH ×2 (09:50→21:23)
--- NOTE | 2017-01-04 10:48 | PROGRESS NOTE ---
DATE: 01/04/2017 SUBJECTIVE: Today Mr. Marrero refers to be doing the same. He continues to have some residual shortness of breath. No coughing. OBJECTIVE: Vital Signs: Blood pressure is 102/80, pulse of 109, respirations 17 and temperature is 98.6 degrees. General: Mr. Marrero is a 71-year-old male. He is in bed, not seemingly distressed. HEENT: Mucosa is pink and moist. Anicteric. Acyanotic. Neck: Supple. Chest: Air entry is bilaterally reduced, more so to the right posterior lung field. There is some faint wheezing with prolongation of expiration. Cardiovascular: Regular rate and rhythm. Abdomen: Soft, nontender. Extremities: No pedal edema. SQL ENGINEER: Patient is alert and oriented x4. No focal neurological deficit. LABORATORY DATA: WBC is 8.76, hemoglobin is 10.3, platelet count of 138. Chemistry is reviewed, normal except for creatinine of 1.3. ASSESSMENT: 1. Right lower lobe methicillin-resistant Staphylococcus aureus pneumonia. 2. Right lower lobe bronchoalveolar carcinoma. 3. Cysto pancreatic mass with elevated CA 19-9. Hematology/Oncology on board. 4. Hypothyroidism. Will continue with supplements. 5. Immunodeficiency. Patient got a dose of IVIG infusion. The levels have normalized. 6. Acute kidney injury, stable. We think this is related to diuretic use. 7. Protein calorie malnutrition/failure to thrive, likely due to the underlying malignancy. 8. Severe chronic obstructive pulmonary disease. The patient will continue with nebulization and steroids and antibiotics. PLAN: So, on general exam Mr. Marrero is stable. He continues to need higher levels of oxygen to maintain adequate saturation. We are going to continue his care at present. Observe him over the course of the weekend here in the intensive care unit. We will plan to transfer him to the floor on Friday. We will also plan to repeat a chest x-ray on Friday. cc: Garrett Scott MD
[2017-01-04] MEDS: VANCOMYCIN 1,700 MG in NS 250 ML IV SCH (15:44)
[2017-01-04] MEDS: APRESOLINE IV PRN (15:44)
[2017-01-04] MEDS: ULTRAM PO PRN (19:45)
[2017-01-04] MEDS: ADALAT CC PO SCH (21:18)
[2017-01-04] MEDS: HYTRIN PO SCH (21:19)
[2017-01-04] MEDS: DESYREL PO SCH (21:19)
[2017-01-05] MEDS: MORPHINE IV PRN ×2 (01:19→18:24)
[2017-01-05] MEDS: ATIVAN IV PRN ×3 (02:30→22:13)
[2017-01-05] MEDS: ATROVENT NEB INH SCH ×4 (03:47→22:00)
[2017-01-05] MEDS: XOPENEX NEB INH SCH ×4 (03:47→22:00)
[2017-01-05 04:35] LABS: ALLEN TEST YES; BE 9.1 mmoll (-3.0-3.0); BLOOD TYPE ARTERIAL; DRAW SITE R RADIAL; METHB 1.9 % (0.0-1.5); O2(CT) 13.9 mL/dL (15.0-23.0); PCO2(98.6) 48 mmHg (35-45); PO2(98.6) 89 mmHg (60-100); SAMPLE BLOOD; SAO2 99.6 % (95.0-100.0); THB 10.2 g/dL (11.5-17.4); pH(98.6) 7.46 (7.35-7.45)
[2017-01-05 04:36] LABS: MODALITY VENTIMASK
[2017-01-05] MEDS: APRESOLINE PO SCH ×3 (06:08→21:30)
[2017-01-05] MEDS: SYNTHROID PO SCH (06:08)
[2017-01-05] MEDS: PRILOSEC PO SCH (06:08)
[2017-01-05] MEDS: XANAX PO SCH ×2 (08:59→21:31)
[2017-01-05] MEDS: SOLU-MEDROL IV SCH (08:59)
[2017-01-05] MEDS: MIRALAX PO SCH ×2 (08:59→21:30)
[2017-01-05] MEDS: LOVENOX SUBQ SCH (08:59)
[2017-01-05] MEDS: SYMBICORT 160/4.5 MICROGM INHALER INH SCH ×2 (10:25→22:00)
--- NOTE | 2017-01-05 14:51 | PROGRESS NOTE ---
DATE: 01/05/2017 SUBJECTIVE: Today Mr. Marrero referred to be doing relatively fine. He does not have any acute complaints. OBJECTIVE: Vital signs: Blood pressure is 112/77, pulse of 112, respirations 14, temperature 97.2 degrees. Patient is saturating 94-92% on vent mask. General: Mr. Marrero is a 71-year-old male. He is in bed, mild respiratory distress. HEENT: Mucosa is pink and moist. Anicteric. Acyanotic. Neck: Supple. Chest: Air entry is bilaterally reduced , more so to the right posterior lung field. There is some faint wheezing and also prolonged expiration. Cardiovascular: Regular rate and rhythm. Slightly tachycardic, but no murmur, no rubs, no gallops. Abdomen: Soft, nontender. Extremities: No pedal edema. HOSE COUPLING JOINER: Patient is alert and oriented x4. There is no chest x-ray for today. LABORATORY WORK: None for today. ASSESSMENT: 1. Right lower lobe methicillin-resistant Staphylococcus aureus pneumonia. We will continue with the current antibiotics. 2. Right lower lobe bronchoalveolar carcinoma noted. 3. 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 Hematology/Oncology on board. 4. Hypothyroidism. We will continue with thyroid supplement. 5. Immunodeficiency. Patient got a dose of IVIg. Levels have normalized. 6. Acute kidney injury. We will repeat her electrolytes and renal function for tomorrow. 7. Protein calorie malnutrition/failure to thrive. Likely due to underlying malignancy. 8. Severe chronic obstructive pulmonary disease. We will continue with nebulizations, steroids and antibiotics. PLAN: In general, Mr. Marrero continued to be stable, but has not shown any remarkable improvement. I think most of his disease is the underlying bronchoalveolar carcinoma. Will be pending Infectious Disease evaluation and also Pulmonary evaluation for today or tomorrow and then go from there. I think on the long-term, Mr. Marrero prognosis continues to be extremely poor. We hope to finish the treatment of the antibiotics and know how much of the consolidation is due to the cancer. cc: Garrett Scott MD [facility]
[2017-01-05] MEDS: HYTRIN PO SCH (21:30)
[2017-01-05] MEDS: DESYREL PO SCH (21:30)
[2017-01-05] MEDS: ULTRAM PO PRN (21:31)
[2017-01-05] MEDS: ADALAT CC PO SCH (21:31)
[2017-01-06] MEDS: ATROVENT NEB INH SCH ×4 (02:45→22:49)
[2017-01-06] MEDS: XOPENEX NEB INH SCH ×4 (02:58→22:50)
[2017-01-06] MEDS: VANCOMYCIN 1,700 MG in NS 250 ML IV SCH (03:20)
[2017-01-06] MEDS: ATIVAN IV PRN ×3 (03:21→15:28)
[2017-01-06 05:04] LABS: ALLEN TEST YES; BLOOD TYPE ARTERIAL; DRAW SITE R RADIAL; METHB 1.6 % (0.0-1.5); O2(CT) 20.2 mL/dL (15.0-23.0); PCO2(98.6) 44 mmHg (35-45); PO2(98.6) 108 mmHg (60-100); SAMPLE BLOOD; SAO2 100.1 % (95.0-100.0); THB 14.8 g/dL (11.5-17.4); pH(98.6) 7.44 (7.35-7.45)
[2017-01-06 05:05] LABS: MODALITY VENTIMASK
[2017-01-06 05:14] LABS: MANUAL DIFF NEEDED? NO
[2017-01-06 05:18] LABS: HEMATOCRIT 30.8 % (42.0-52.0); HEMOGLOBIN 10.2 g/dL (14.0-18.0); IMM GRAN# 0.04 X1000 (0.0-0.04); IMM GRAN% 0.5 % (0.0-0.5); LYMPH# 0.82 X1000 (1.2-3.4); MCH 30.7 PG (27-31); MCHC 33.1 g/dL (33-37); MCV 92.8 FL (81-99); MONO# 0.49 X1000 (0.11-0.59); MPV 11.3 FL (7.4-10.4); NEUT% 83.5 % (42.2-75.2); PLT 131 X1000 (130-400); RBC 3.32 XMIL (4.7-6.1)
[2017-01-06 05:40] LABS: AGAP 11; ALKALINE PHOSPHATASE 98 U/L (32-122); BUN 38 mg/dL (8-22); CALCIUM 8.9 mg/dL (8.8-10.2); CHLORIDE 102 mmol/L (98-107); COSMO 290; GOT 17 U/L (10-34); GPT 22 U/L (10-44); MAGNESIUM 2.4 mg/dL (1.5-2.7); POTASSIUM 4.4 mmol/L (3.5-5.1); SODIUM 140 mmol/L (136-145); TCO2 27 mmol/L (25-35); TOTAL BILIRUBIN 0.27 mg/dL (0.20-1.00)
[2017-01-06] MEDS: SYNTHROID PO SCH (06:08)
[2017-01-06] MEDS: APRESOLINE PO SCH ×3 (06:08→22:50)
[2017-01-06] MEDS: PRILOSEC PO SCH (06:08)
--- NOTE | 2017-01-06 08:21 | Diag Imaging Result Document ---
PROCEDURE NAME: CHEST-PORTABLE - 01/06/2017 PORTABLE CHEST: Compared with 01/02/2017. FINDINGS: There is diffuse infiltrate on the right which is most dense at the lower lung. This appears to have decreased slightly at the upper lungs. There is stable mild infiltrate at the left base. There is no pneumothorax seen. Heart size is normal. IMPRESSION: Stable right lower lung infiltrate. Slight decrease in right upper lung infiltrate.
[2017-01-06] MEDS: XANAX PO SCH ×2 (08:24→22:49)
[2017-01-06] MEDS: LOVENOX SUBQ SCH (08:24)
[2017-01-06] MEDS: SOLU-MEDROL IV SCH (08:24)
[2017-01-06] MEDS: MIRALAX PO SCH ×2 (08:25→22:49)
[2017-01-06] MEDS: SYMBICORT 160/4.5 MICROGM INHALER INH SCH ×2 (10:01→19:35)
--- NOTE | 2017-01-06 11:51 | PROGRESS NOTE ---
DATE: 01/06/2017 SUBJECTIVE: Today, Mr. Marrero refers to be doing a little better. Continues to have some residual shortness of breath. OBJECTIVE: Vital Signs: Blood pressure is 128/81, pulse 106, respirations are 19, temperature is 97.9. General Examination: Mr. Marrero is a 71-year-old, male. He is in bed, does not seems to be in any remarkable distress. HEENT: Mucosa is pink and moist. Anicteric and acyanotic. Neck: Supple. Chest: Air entry is bilaterally reduced, mostly to the right posterior lung field. There is some faint distal wheezing and some coarse crepitations. Cardiovascular: Regular rate and rhythm. Slightly tachycardic but no murmurs, no rubs. Abdomen: Soft, nontender. No hepatosplenomegaly. Extremities: No pedal edema. MOLD FILLER AND DRAINER: Patient is alert and oriented x4. There is no focal neurological deficit. Laboratory Data: WBC is 8.2, hemoglobin is 10.2, and platelet count of 131,000. Chemistry is reviewed and completely unremarkable. Creatinine is down to 1.1. ASSESSMENT: 1. Right lower lobe methicillin-resistant Staphylococcus aureus pneumonia. The patient is currently on vancomycin. Today is day 10 on antibiotics. We are be waiting on Dr. Gutierrez for further recommendations on this. 2. Right lower lobe bronchoalveolar carcinoma. Hematology/oncology on board. 3. Cystopancreatic mass with elevated CA-19-9. 4. Hypothyroidism. We will continue with supplement. 5. Immunodeficiency. Patient got a dose of IVIG. Levels are normal. 6. Acute kidney injury, improved. 7. Protein calorie malnutrition/failure to thrive. 8. Severe chronic obstructive pulmonary disease. We will continue with nebulizations, antibiotics, and gradually taper down the steroids. PLAN: In general, I think Mr. Marrero is doing relatively stable. We are going to move from the ICU to a regular floor. Continue with the current therapy. cc: Garrett Scott MD
[2017-01-06] MEDS: APRESOLINE IV PRN (15:28)
[2017-01-06] MEDS: ULTRAM PO PRN (17:23)
--- NOTE | 2017-01-06 19:22 | PROGRESS NOTE ---
DATE: 01/06/2017 PRESENT ILLNESS: The patient has a methicillin-resistant Staph aureus pneumonia which is superimposed over a recent diagnosis of lung cancer. MEDICATIONS: This is day 10 of treatment with the antibiotics for his pneumonia. PHYSICAL EXAMINATION: Vital Signs: Temperature is 98.3 degrees, pulse 102, respirations 23, blood pressure 114/71. General: This is an ill-appearing, elderly male. He is in no acute distress. Lungs: Diminished breath sounds on the right side. He had bilateral rhonchi. Cardiovascular: Regular heart rate. Abdomen: Soft and nontender. Thorax: He has any increased AP diameter of the chest. LAB AND X-RAY: Chest x-ray shows improvement of the right lung infiltrate. CBC today shows a white count of 8,200, hemoglobin 10.2, and platelet count 131,000. Blood gases show a pH of 7.44, PO2 of 108, and a pCO2 of 44. Creatinine is 1.1. GFR is greater than 60. Liver function studies are normal. Vancomycin level was 23.6. ASSESSMENT AND PLAN: The patient's pneumonia appears to be improving. My plan will be to continue the patient's vancomycin. I think he can be discharged home soon and treated with an oral antistaphylococcal antibiotic. I think it would be reasonable to obtain an Oncology consultation to talk to the patient about his lung cancer. COMORBIDITIES: COPD, newly diagnosed lung cancer and cigarette smoking. cc: Aubrey Gutierrez MD
[2017-01-06] MEDS: HYTRIN PO SCH (22:49)
[2017-01-06] MEDS: DESYREL PO SCH (22:49)
[2017-01-06] MEDS: ADALAT CC PO SCH (22:50)
[2017-01-07] MEDS: MORPHINE IV PRN ×3 (03:45→18:31)
[2017-01-07] MEDS: XOPENEX NEB INH SCH ×4 (04:50→22:08)
[2017-01-07] MEDS: ATROVENT NEB INH SCH ×4 (04:50→22:08)
--- NOTE | 2017-01-07 06:10 | PROGRESS NOTE ---
DATE: 01/06/2017 ADDENDUM: I have electronically brought up a prescription for doxycycline 100 mg p.o. every 12 hours. I have written for 30 of then with 1 refill. I think the patient can be discharged tomorrow on p.o. doxycycline which I have created a prescription for. I plan to see the patient back in the office in 2 weeks at which time I will examine him and repeat a chest x-ray to see if he needs any further antibiotics. On the prescription there is 1 refill. cc: Aubrey Gutierrez MD
[2017-01-07] MEDS: PRILOSEC PO SCH (06:32)
[2017-01-07] MEDS: APRESOLINE PO SCH ×3 (06:32→21:10)
[2017-01-07] MEDS: SYNTHROID PO SCH (06:32)
[2017-01-07] MEDS: SYMBICORT 160/4.5 MICROGM INHALER INH SCH ×2 (09:56→22:08)
[2017-01-07] MEDS: XANAX PO SCH ×2 (10:16→19:59)
[2017-01-07] MEDS: MIRALAX PO SCH ×2 (10:18→19:59)
[2017-01-07] MEDS: LOVENOX SUBQ SCH (10:18)
[2017-01-07] MEDS: SOLU-MEDROL IV SCH (10:18)
[2017-01-07] MEDS: ATIVAN IV PRN (13:05)
--- NOTE | 2017-01-07 16:43 | DISCHARGE SUMMARY ---
ADMISSION DATE: 12/20/2016 DISCHARGE DATE: 01/07/2017 CONSULTATIONS: 1. Aubrey Gutierrez MD with Infectious Disease. 2. Amee Up MD with Gastroenterology. 3. JIN John, with Palliative Care. 4. Alfred Norris MD with Pulmonology. 5. Brannon Ryan MD with Cardiology PERTINENT PROCEDURES: 1. Pulmonary arteriogram showed no pulmonary emboli, pneumonia most pronounced in the right lower lobe and emphysema. 2. Second pulmonary arteriogram showed worsening extensive consolidation in the right lower lobe suspicious for pneumonia. Endobronchial obstruction could not be excluded, new right effusion, increasing left lower lobe consolidation, irregular areas of consolidation within the anterior upper lobes, no evidence for acute PE, small pericardial effusion, intermediate 3.6 cm cystic pancreatic tail mass which could be a pseudocyst or cystic pancreatic neoplasm. 3. Small amount of abdominal ascites. 4. Echocardiogram showed an EF of 65-70%. 5. Bronchoscopy with washing of the trachea, washing of the right lower lobe and transbronchial biopsies of the right lower lobe performed by Dr. Norris. DISCHARGE DIAGNOSES: 1. Right lower lobe methicillin-resistant Staphylococcus aureus pneumonia. The patient will be discharged on doxycycline 100 mg p.o. every 12 hours and will follow up with Dr. Aubrey Gutierrez in 2 weeks. At that time he will do a repeat chest x-ray to see if he needs further antibiotics. He does have 1 refill on his prescription of doxycycline. 2. Right lower lobe bronchoalveolar carcinoma. Hematology/ Oncology on board. 3. Cystopancreatic mass with elevated CA-19.9. 4. Hypothyroidism. Continue with supplementation. 5. Immunodeficiency. Patient is receiving doses of IVIG. Continue to follow Hematology/Oncology. 6. Acute kidney injury improved. 7. Protein calorie malnutrition/failure to thrive. Continue with supplementation. 8. Severe chronic obstructive pulmonary disease. He will continue with nebulizers, p.o. antibiotics and taper steroids. HOSPITAL COURSE: Mr. Marrero is a 71-year-old, male who carries a past medical history of COPD with recurrent pneumonia, hypertension and hypothyroidism. He was initially admitted at [facility] on 12/20/2016 with complaints of shortness of breath. He was being treated for a diagnosis of bilateral pneumonia at [facility]. He was transferred to [facility] due to a continued decline in his respiratory status. Dr. Norris was consulted with Pulmonology. Patient underwent bronchoscopy with washing of the trachea, washing of the right lower lobe and transbronchial biopsies of the right lower lobe. Dr. Aubrey Gutierrez with Infectious Disease is also on board for antibiotics. The patient remained in the ICU for several days. GI as well as Hematology/Oncology was called consulted for the pancreatic mass with an elevated CA-19.9. Hematology/Oncology will have the patient follow up with a [address] scan in about a month after his acute issues have resolved as well as continuing IVIG. Palliative Care was also brought on board. His plan for goal of care was at discharge to relocate to [place] to be closer to his family. Mr. Marrero was able to move out of the ICU. He did have some issues with anxiety as well as continued mild shortness of breath at times. The patient is being discharged home today with home health [facility] as well as DME. VITAL SIGNS AT TIME OF DISCHARGE: Temperature 98 degrees, heart rate 88, respirations 18, blood pressure 129/89, O2 is 93% on nasal cannula. DISCHARGE DIET: Regular with Ensure. DISCHARGE MEDICATIONS: 1. Proventil inhaler 6.7 g inhaled q.4 hours p.r.n. 2. Symbicort 160/4.5 mcg inhaler 2 puffs inhaled RT b.i.d. 3. Doxycycline 100 mg p.o. q.12 hours with 1 refill. 4. Atrovent nebulizer 0.5 mg inhaled RT q.6 hours. 5. Combivent inhaler 4 g inhaled 4 times a day. 6. Xopenex 1.25 mg inhaled RT q.6 hours. 7. Synthroid 112 mcg p.o. daily. 8. Procardia XL 60 mg p.o. at bedtime. 9. Terazosin 2 mg p.o. at bedtime. 10. Ultram 100 mg p.o. q.6 hours p.r.n. 11. Desyrel 50 mg p.o. at bedtime. FOLLOWUP: 1. Patient is being discharged home with home health and DME. 2. He will need to follow up with Dr. Aubrey Gutierrez in 2 weeks [address] Ro Hernandez for outpatient testing. 3. The patient can return to the ED for any worsening of symptoms. DISCHARGE TIME: Greater than 30 minutes. Dictated by JIN Justice for Garrett Scott MD cc: Garrett Scott MD
[2017-01-07] MEDS: VANCOMYCIN 1,700 MG in NS 250 ML IV SCH (18:20)
[2017-01-07] MEDS: HYTRIN PO SCH (19:59)
[2017-01-07] MEDS: ADALAT CC PO SCH (19:59)
[2017-01-07] MEDS: DESYREL PO SCH (19:59)
[2017-01-08] MEDS: ATROVENT NEB INH SCH ×4 (04:20→22:05)
[2017-01-08] MEDS: XOPENEX NEB INH SCH ×4 (04:20→22:05)
[2017-01-08] MEDS: APRESOLINE PO SCH ×3 (06:16→21:12)
[2017-01-08] MEDS: SYNTHROID PO SCH (06:16)
[2017-01-08] MEDS: PRILOSEC PO SCH (06:16)
[2017-01-08] MEDS: SYMBICORT 160/4.5 MICROGM INHALER INH SCH ×2 (09:32→22:05)
[2017-01-08] MEDS: XANAX PO SCH ×2 (09:59→19:59)
[2017-01-08] MEDS: MIRALAX PO SCH ×2 (09:59→19:59)
[2017-01-08] MEDS: LOVENOX SUBQ SCH (10:00)
[2017-01-08] MEDS: SOLU-MEDROL IV SCH (10:00)
[2017-01-08] MEDS: MORPHINE IV PRN (14:06)
--- NOTE | 2017-01-08 16:34 | PROGRESS NOTE ---
DATE: 01/08/2017 PRESENT ILLNESS: The patient has been diagnosed with lung cancer. He also has a methicillin- resistant Staph aureus pneumonia. MEDICATIONS: This is day 11 of treatment for his pneumonia with vancomycin. PHYSICAL EXAMINATION: Vital Signs: Temperature is 98.2 degrees, pulse 91, respirations 20, blood pressure 117/75. General: This is a chronically ill-appearing, elderly male. He is in no acute distress. Lungs: Clear to auscultation. Cardiovascular: Heart rate is regular. Abdomen: Soft and nontender. Neurologic: Patient is alert and can move his extremities. Thorax: He has an increased AP diameter of the chest. LAB AND X-RAY: There is no lab or x-ray for today. ASSESSMENT AND PLAN: The patient is improving. The plan is to send the patient home tomorrow on doxycycline for which I have already got a prescription for. I will be seeing the patient back in my office in 2 weeks at which time we will repeat his chest x-ray. COMORBIDITIES: Include COPD, lung cancer and cigarette smoking. cc: Aubrey Gutierrez MD
--- NOTE | 2017-01-08 16:56 | PROGRESS NOTE ---
DATE: 01/08/2017 SUBJECTIVE: Today, Mr. Marrero referred to be doing relatively stable. He does not really have any acute complaints. The patient was actually pending discharge yesterday but, because of social issues at home and the fact that the patient will not be able to take care of himself, discharge was withheld for placement in a rehab facility or SNIF where he can be managed. OBJECTIVE: Vital Signs: Blood pressure is 117/75, pulse is 91, respiration is 20, temperature 98.2 degrees. General: Mr. Marrero is a 71-year-old male. He is in bed , not seemingly distressed. HEENT: Mucosa is pink and moist. Anicteric. Acyanotic. Neck is supple. Chest: Air entry is bilaterally reduced. There is diffuse bilateral and expiratory wheezing and some coarse crackling in the posterior lung [place] Cardiovascular: Regular rate and rhythm. Abdomen is soft. Extremities: No pedal edema. LABORATORY DATA: None for today. ASSESSMENT: 1. Right lower lobe Methicillin-resistant Staphylococcus aureus pneumonia. 2. Right lower lobe bronchial alveolar carcinoma. 3. 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 Patient will be followed up by Heme/Onc. 4. Hypothyroidism, stable on supplements. 5. Acute kidney injury, improved. 6. Severe chronic obstructive pulmonary disease. 7. Protein calorie malnutrition/failure to thrive. In general, Mr. Marrero is relatively stable. We are going to continue with the current antibiotics. Patient is pending a SNIF/rehab bed. Once that is arranged, we will be able to transfer him. cc: Garrett Scott MD [facility]TDD
[2017-01-08] MEDS: ATIVAN IV PRN (18:08)
[2017-01-08] MEDS: HYTRIN PO SCH (19:59)
[2017-01-08] MEDS: ADALAT CC PO SCH (19:59)
[2017-01-08] MEDS: DESYREL PO SCH (19:59)
[2017-01-09] MEDS: VANCOMYCIN 1,700 MG in NS 250 ML IV SCH (03:03)
[2017-01-09] MEDS: ATROVENT NEB INH SCH ×2 (03:50→07:45)
[2017-01-09] MEDS: XOPENEX NEB INH SCH ×2 (03:50→07:46)
[2017-01-09] MEDS: ATIVAN IV PRN ×2 (04:55→14:16)
[2017-01-09] MEDS: PRILOSEC PO SCH (05:59)
[2017-01-09] MEDS: APRESOLINE PO SCH (05:59)
[2017-01-09] MEDS: SYNTHROID PO SCH (05:59)
[2017-01-09] MEDS: SYMBICORT 160/4.5 MICROGM INHALER INH SCH (07:44)
[2017-01-09] MEDS: XANAX PO SCH (08:14)
[2017-01-09] MEDS: LOVENOX SUBQ SCH (08:14)
[2017-01-09] MEDS: SOLU-MEDROL IV SCH (08:14)
[2017-01-09] MEDS: MIRALAX PO SCH (08:14)
[2017-01-09 08:35] VITALS: BP 139/74
--- NOTE | 2017-01-09 08:46 | DISCHARGE SUMMARY ---
ADMISSION DATE: 12/20/2016 DISCHARGE DATE: 01/10/17 ADDENDUM: After speaking with patient and family further, the patient has chosen to go to rehab. He has family who live in [place], so he has decided to do a rehab there. The patient has chosen [facility] for rehab, and he will be set for discharge today. No acute events overnight. Dictated by JIN Justice for Garrett Scott MD cc: Garrett Scott MD [facility]TDD
--- NOTE | 2017-01-09 12:48 | Diag Imaging Result Document ---
PROCEDURE NAME: CHEST-2 VIEWS - 01/09/2017 PA AND LATERAL RADIOGRAPH OF THE CHEST: COMPARISON: 01/06/2017. FINDINGS: Dense consolidation throughout the right lung with a basilar predominance is essentially stable. There also appears to be consolidation at the left lung base that is unchanged. No new consolidations identified. Cardiac silhouette is stable. IMPRESSION: Grossly stable chest.
--- NOTE | 2017-01-17 19:14 | ED EKG INTERP ---
This chart was entered by Isabella Ramon Scribe, acting as scribe for Saurabh Montero DO. EKG Interpretation - EKG Time of EKG reading by physician:: 20:52 EKG Read and Signed by:: Saurabh Montero EKG Interpretation (*Must complete 3 of following elements*): Normal Rate: 103 Rhythm: ST [place]: right QRS: normal [place] Interval: normal ST Wave: normal This chart was documented by the indicated scribe, (Isabella Ramon Scribe) and accurately reflects the services I performed and decisions made by , Saurabh Montero DO, as attested by the provider's signature.
--- NOTE | 2017-01-17 19:15 | PROVIDER DOCUMENTATION ---
This chart was entered by Isabella Ramon Scribe, acting as scribe for Saurabh Montero DO. HPI-General Adult - General Chief Complaint: Return/Recheck Stated Complaint: COPD (SOB) Time Seen by Provider: 12/19/16 20:34 Source: patient Allergies/Adverse Reactions: Patient Allergies Allergy/AdvReac Type Severity Reaction Status Date / Time No Known Allergies Allergy Verified 10/18/16 10:37 Home Medications: Home Medication List Medication Instructions Recorded Confirmed Last Taken Type Budesonide/Formoterol Inhaler 2 puff INH RTBID 10/18/16 12/20/16 Unknown History [Symbicort 160/4.5 Microgm Inhaler] Levothyroxine Sodium [Synthroid] 112 mcg PO DAILY@0700 10/18/16 12/20/16 History Nifedipine [Procardia Xl] 60 mg PO QHS 10/18/16 12/20/16 12/12/16 History Terazosin HCl 10 mg PO QHS 10/18/16 12/20/16 12/13/16 History Trazodone [Desyrel] 50 mg PO QHS 10/18/16 12/20/16 12/13/16 History Albuterol Sulfate [Proventil Hfa] 6.7 gm INH Q4HR PRN 12/13/16 12/20/16 History Ipratropium/Albuterol INH 4 gm INH 4XDAY 12/13/16 12/20/16 12/13/16 History [Combivent Respimat Inhaler] Tramadol [Ultram] 100 mg PO Q6H PRN 12/13/16 12/20/16 12/13/16 History Doxycycline 100 mg PO Q12H #30 tablet 01/06/17 Unknown Rx Ipratropium [place] Neb [Atrovent 0.5 mg INH RTQ6H #30 neb 01/07/17 Unknown Rx Neb] Levalbuterol Neb [Xopenex Neb] 1.25 mg INH RTQ6H #60 neb 01/07/17 Unknown Rx Alprazolam [Xanax] 0.25 mg PO BID #20 tablet 01/09/17 Unknown Rx - History of Present Illness -Gen Adult Nature of Presenting Problems: PT IS A 71YOM PRESENTING TO ED C/O SOB. PT WAS SEEN LAST WEEK FOR SAME SYMPTOMS AND DC'D OF FRIDAY. PT STATES EACH DAY HES GOTTEN MORE SOB. NO NEW SYMPTOMS OR COMPLAINTS AT THIS TIME. Location of Pain/Injury: reports: chest Pain Radiation: reports: no radiation Quality of Pain: reports: fullness, tightness Severity: reports: mild, moderate Onset/Duration: reports: gradual, 3 days ago Timing: reports: still present Context/Activities at Onset: reports: light activity Modifying Factors: improves with: nothing Associated Symptoms: reports: cough, EENT symptoms, fatigue, malaise, sinus congestion/drainage, shortness of breath Similar Symptoms Previously?: Yes Recently seen or treated by another doctor?: Yes Review of Systems - Adult - REVIEW OF SYSTEMS - ADULT Constitutional: reports: no symptoms reported Eyes: reports: no symptoms reported Ears, Nose, Mouth & Throat: reports: no symptoms reported Cardiovascular: reports: no symptoms reported Respiratory: reports: see HPI, chronic cough, cough, dyspnea on exertion, excessive sputum production, shortness of breath, wheezing Gastrointestinal: reports: no symptoms reported Genitourinary: reports: no symptoms reported Musculoskeletal: reports: no symptoms reported Integumentary: reports: no symptoms reported Neurological: reports: no symptoms reported Psychiatric: reports: no symptoms reported Endocrine: reports: no symptoms reported Hematologic/Lymphatic: reports: no symptoms reported Allergic/Immunologic: reports: no symptoms reported All Other Systems: Reviewed and Negative Past History - Adult - PAST MEDICAL HISTORY-ADULT Review of Records: reports: Old Records Reviewed, Nursing Assessment Review, Medications Reviewed, Social history reviewed & non-contributory. Major Childhood Illnesses: reports: denies history Cardiovascular: reports: HTN Respiratory: reports: COPD Gastrointestinal: reports: denies history Obstetrical/Gynecological: reports: denies history Genitourinary: reports: denies history Musculoskeletal: reports: denies history Neurological: reports: denies history Endocrine/Immune: reports: thyroid disorder (hypo) Other Conditions: reports: denies history - PRIOR SURGERIES/PROCEDURES Surgical/Procedure History: reports: hernia repair - IMMUNIZATION STATUS Childhood Immunizations: See Nurse Assessment Flu Vaccine: See Nurse Assessment - FAMILY HISTORY Family History: reviewed, not pertinent - SOCIAL HISTORY Smoking: quit greater than 1 year Substance Use: none/never, denies Alcohol Use Frequency: never Living Situation: family Physical Exam-General - PHYSICAL EXAM-ADULT Initial Vital Signs Reviewed: Yes - CONSTITUTIONAL General Appearance: appears well, alert, mild distress, thin, anxious - EYES Eyes: PERRL/EOMI, pink conjunctivae, FUN - HEAD, EARS, NOSE, MOUTH & THROAT HENMT: normocephalic/atraumatic, moist mucous membranes, normal ENT inspection, TMs normal, pharynx normal - NECK Neck: non-tender, full range of motion, supple, normal inspection - RESPIRATORY Respiratory: chest non-tender, no pleuratic chest pain, no respiratory distress , no accessory muscle use, crackles, wheezing. negative: lungs clear, normal breath sounds - CARDIOVASCULAR Cardiovascular: normal peripheral pulses, no edema, no gallop, no JVD, no murmur , tachycardia. negative: regular rate, rhythm - GASTROINTESTINAL (ABDOMEN) Abdominal Exam: normal bowel sounds, non tender, soft, no organomegaly, no pulsatile mass - LYMPHATIC Lymphatic: no adenopathy - MUSCULOSKELETAL Back Exam: normal inspection, no CVA tenderness, no vertebral tenderness Extremity: normal range of motion, non-tender, normal gait, normal inspection, no pedal edema, no calf tenderness, normal capillary refill, pelvis stable - SKIN Integumentary: normal color, normal turgor, warm/dry - NEUROLOGIC Neurologic: smt machine operator II-XII nml as tested, grossly normal, no motor/sensory deficits - PSYCHIATRIC Psych/Mental Status: normal mood/affect, normal thought content, normal thought process, oriented x 3 Progress - PLAN OF CARE/RESULTS Progress/Plan/Lab Results: Vital Signs - 8 hr 12/19/16 19:41 Temperature 97.8 F Pulse Rate 118 H Respiratory Rate 20 Blood Pressure 133/97 O2 Sat by Pulse Oximetry 95 Orders Category Date Time Status Cardiac Monitoring DIRECTED Care 12/19/16 20:43 Active Saline Loc NOW Care 12/19/16 20:43 Active CHEST-2 VIEWS [RAD] Stat Exams 12/19/16 20:43 Ordered CBC WITH ELECTRONIC DIFF [HEME] Stat Lab 12/19/16 20:43 Ordered CK PROFILE [SP CHEM] Stat Lab 12/19/16 20:43 Ordered COMPREHENSIVE METABOLIC PANEL [CHEM] Stat Lab 12/19/16 20:[address] Or[address] D-[address] [COAG] Stat Lab 12/19/16 20:43 Ordered MAGNESIUM [CHEM] Stat Lab 12/19/16 20:43 Ordered PRO B-NATRIURETIC PEPTIDE Stat Lab 12/19/16 20:[address]IME WITH INR PL [COAG] Stat Lab 12/19/16 20:[address] [COAG] Stat Lab 12/19/16 20:43 Ordered TROPONIN T Stat Lab 12/19/16 20:43 Ordered EKG [EKG] Stat Ther 12/19/16 20:43 Ordered Result Diagrams: 01/06/17 04:15 01/06/17 04:15 Departure - Departure Time of Disposition Decision: 08:52 DIAGNOSIS: COPD exacerbation Pneumonia Qualifiers: Pneumonia type: due to unspecified organism Laterality: right Lung location: unspecified part of lung Qualified Code(s): J18.9 - Pneumonia, unspecified organism Disposition: ADMITTED INPATIENT 09 Certified Medical Emergency: Emergent Condition: Good - Critical Care Note This patient required my direct & personal management of CC.: No This chart was documented by the indicated scribe, (Isabella Ramon Scribe) and accurately reflects the services I performed and decisions made by me, Suarabh Montero DO, as attested by the provider's signature.
== END 2017-01-09 15:11 ==
LOC: P.ED 19:33 → SUATTDRO 12-20 01:36 → P.MEDSURG 12-20 01:36 → 3N 12-27 13:07 → ICU 12-27 14:25 → 3N 01-06 16:29
PROVIDERS: ATTEND Internal Medicine